=== PATIENT | female | born 1930 | race Caucasian/White ===

== ENCOUNTER 2016-12-16 14:00 | Emergency (ER) | payer MEDICARE, OTHER ==
[2016-12-16 14:25] VITALS: BP 201/63
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
== END 2016-12-16 15:30 | disposition home or self-care (01) ==
LOC: KA.ED 14:00
DX: S43.492A Other sprain of left shoulder joint, initial encounter (principal); E78.00 Pure hypercholesterolemia, unspecified; I10 Essential (primary) hypertension; M19.90 Unspecified osteoarthritis, unspecified site; M81.0 Age-related osteoporosis without current pathological fracture; F41.9 Anxiety disorder, unspecified; E11.9 Type 2 diabetes mellitus without complications; Z88.8 Allergy status to other drugs, medicaments and biological substances; Z79.899 Other long term (current) drug therapy; Z79.82 Long term (current) use of aspirin; Z79.4 Long term (current) use of insulin; V49.9XXA Car occupant (driver) (passenger) injured in unspecified traffic accident, initial encounter
CPT/HCPCS: 73030-LT; 99283

== ENCOUNTER 2016-12-22 16:59 | Emergency (ER) | payer MEDICARE, OTHER ==
[2016-12-22] MEDS ORDERED: Labetalol 100 MG/20 ML MDV IVPUSH ONE (17:34)
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
[2016-12-22] MEDS ORDERED: Ketorolac 30 MG/ML SDV IVPUSH ONE (18:32)
[2016-12-22 18:41] LABS: CHLORIDE,CL 100 mmol/L (98-115); SODIUM,NA 140 mmol/L (136-145)
[2016-12-22] MEDS ORDERED: LORazepam 0.5 MG Tab PO ONE (18:49)
[2016-12-22] MEDS ORDERED: HYDROmorphone 1 MG/ML Syringe IVPUSH ONE (19:46)
[2016-12-23 00:03] VITALS: BP 194/54
== END 2016-12-22 21:30 | disposition home or self-care (01) ==
LOC: KA.ED 16:59
DX: I10 Essential (primary) hypertension (principal); M19.90 Unspecified osteoarthritis, unspecified site; M81.0 Age-related osteoporosis without current pathological fracture; E78.00 Pure hypercholesterolemia, unspecified; E11.9 Type 2 diabetes mellitus without complications; Z88.8 Allergy status to other drugs, medicaments and biological substances; Z79.82 Long term (current) use of aspirin; Z79.4 Long term (current) use of insulin
CPT/HCPCS: 70450; 80048; 84484; 85025; 93005; 96374; 96375; 99284; A9270; J1170; J1885

== ENCOUNTER 2016-12-23 15:21 | Inpatient (IN) | payer MEDICARE, OTHER ==
[2016-12-23] MEDS ORDERED: Labetalol 100 MG/20 ML MDV IVPUSH ONE (15:36)
[2016-12-23] MEDS ORDERED: HYDROmorphone 1 MG/ML Syringe IVPUSH ONE ×2 (15:38→16:42)
[2016-12-23] MEDS ORDERED: Ondansetron 4 MG/2 ML SDV IVPUSH ONE (15:39)
--- NOTE | 2016-12-23 15:39 | EDM.PDOC ---
ED HPI GENERAL MEDICAL PROBLEM - General Stated Complaint: HEADACHE Time Seen by Provider: 12/23/16 15:23 Source of Information: Reports: Patient, Family (dtr-n-law) History Limitations: Reports: No Limitations - History of Present Illness INITIAL COMMENTS - FREE TEXT/NARRATIVE: Patient comes back to ER with a return of her headache and likely high blood pressure again. She was in ER here about 20 hours ago (last evening) with similar symptoms but headache today is not quite as bad. Head CT was negative last night. She had Labetalol, and low doses of Ativan and Dilaudid and improved significantly before leaving the ER last evening. She slept very well and had no headache this morning. She ate good at breakfast and dinner/lunch. Her headache started not long after lunch. Her blood pressure around noon was 160's over 90's on her home sandy which may not be extremely accurate she says. Before coming in to ER she rechecked the pressure and it wouldn't read it stating "error". Today she is nauseated but no vomiting or diarrhea. - Related Data Allergies Allergy/AdvReac Type Severity Reaction Status Date / Time atenolol [From Tenormin] Allergy Dizziness Verified 12/22/16 17:12 cefdinir Allergy Diarrhea Verified 12/22/16 17:12 heart patch Allergy Other Uncoded 12/22/16 17:13 Home Meds: Home Meds Ascorbic Acid [Vitamin C] 500 mg PO BEDTIME 10/21/14 [History] Aspirin [Halfprin] 81 mg PO DAILY@1800 10/21/14 [History] Benazepril [Lotensin] 40 mg PO BEDTIME 10/21/14 [History] Docusate Sodium [Colace] 100 mg PO BEDTIME 10/21/14 [History] Escitalopram Oxalate [Lexapro] 10 mg PO DAILY 10/21/14 [History] Furosemide [Lasix] 20 mg PO DAILY 10/21/14 [History] Insulin Aspart [NovoLOG] 10 units SUBCUT 1200,1800 10/21/14 [History] Insulin Glarg,Human.Rec.Analog [LantUS Solostar] 75 units SUBCUT DAILY 10/21/14 [History] Multivitamins [Tab-A-Lary] 1 each PO DAILY 10/21/14 [History] traMADol [Ultram] 50 mg PO Q6H PRN 10/21/14 [History] Calcium Carbonate/Vitamin D3 [Calcium 600-Vit D3 800 Tablet] 1 tab PO BIDMEALS 06/01/16 [History] Acetaminophen [Tylenol Arthritis Pain] 650 mg PO Q8H #90 tab.er 06/08/16 [Rx] Calcium Citrate/Vitamin D3 [Calcium Citrate + D] 2 tab PO BIDMEALS #180 tablet 06/08/16 [Rx] Alendronate [Fosamax] 70 mg PO Q7D@0600 12/16/16 [History] Past Medical History HEENT History: Reports: Cataract Cardiovascular History: Reports: High Cholesterol, Hypertension Respiratory History: Reports: Sleep Apnea Gastrointestinal History: Reports: Chronic Constipation Other Gastrointestinal History: constipation Genitourinary History: Reports: Urinary Incontinence Other Genitourinary History: "not much control anymore" 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: Musculoskeletal History: Reports: Arthritis, Back Pain, Chronic, Osteoporosis Psychiatric History: Reports: Anxiety Endocrine/Metabolic History: Reports: Diabetes, Type II Immunologic History: Reports: None - Infectious Disease History Infectious Disease History: Reports: Chicken Pox, Measles, Mumps, Pertussis ( Whooping Cough) - Past Surgical History HEENT Surgical History: Reports: Cataract Surgery Social & Family History - Family History HEENT: Reports: None Cardiac: Reports: Other (See Below) Respiratory: Reports: None GI: Reports: None : Reports: None OBGYN: Reports: None Musculoskeletal: Reports: None Neurological: Reports: None Psychiatric: Reports: None Endocrine/Metabolic: Reports: None Hematologic: Reports: None Immunologic: Reports: None Dermatologic: Reports: None Oncologic: Reports: None - Tobacco Use Smoking Status *Q: Unknown Ever Smoked Second Hand Smoke Exposure: No - Caffeine Use Caffeine Use: Reports: Coffee - Recreational Drug Use Recreational Drug Use: No ED ROS GENERAL - Review of Systems Review Of Systems: See Below Constitutional: Reports: Weakness (general; weaker than yesterday), Diaphoresis (slight when the headache started; probably also when the BP went up). Denies: Fever, Chills, Decreased Appetite HEENT: Denies: Throat Pain, Vision Change Respiratory: Denies: Shortness of Breath, Cough Cardiovascular: Denies: Chest Pain, Lightheadedness, Syncope Endocrine: Denies: Low Glucose GI/Abdominal: Reports: Nausea. Denies: Abdominal Pain, Vomiting : Denies: Dysuria, Flank Pain Musculoskeletal: Denies: Neck Pain, Shoulder Pain (no new pain), Arm Pain, Back Pain Skin: Denies: Cyanosis, Jaundice, Mottled, Pallor, Diaphoresis Neurological: Reports: Headache. Denies: Confusion, Dizziness, Numbness, Seizure, Syncope, Trouble Speaking Psychiatric: Denies: Agitation, Anxiety, Confusion - Physical Exam Exam: See Below Exam Limited By: No Limitations General Appearance: Alert, WD/WN, No Apparent Distress Eye Exam: Bilateral Eye: EOMI, Normal Inspection, PERRL Ears: Normal External Exam, Hearing Grossly Normal Nose: Normal Inspection, No Blood Throat/Mouth: Normal Lips, Normal Voice, No Airway Compromise Head Exam: Atraumatic, Normocephalic Neck: Normal Inspection, Supple, Non-Tender, Full Range of Motion. No: Carotid Bruit Respiratory/Chest: No Respiratory Distress, Lungs Clear, Normal Breath Sounds, No Accessory Muscle Use Cardiovascular: Normal Peripheral Pulses, Regular Rate, Rhythm, No Edema, No Gallop, No JVD, No Murmur GI/Abdominal: Normal Bowel Sounds, Soft, Non-Tender, No Organomegaly, No Distention Neuro Exam (Abbreviated): Alert, Oriented, Normal Cognition, No Motor/Sensory Deficits Back Exam: No: CVA Tenderness (L), CVA Tenderness (R) Extremities: Normal Inspection, Normal Range of Motion, Non-Tender, No Pedal Edema Psychiatric: Normal Affect, Normal Mood Skin Exam: Warm, Dry, Intact, Normal Color, No Rash Course - Re-Assessments/Exams Free Text/Narrative Re-Assessment/Exam: 12/23/16 16:35 WBC is 13.3, lactate 1.9, EKG normal, UA reveals definite UTI. Ordered urine culture and starting IV Cipro. Discussed findings with patient and her dtr-n- law. Also discussed with Ilenaa Rojas NP who will accept for admission and order routine meds. Patient stable with improving blood pressure, now at 163/55. Headache only down to 7 an hour after 0.5 mg Dilaudid so will do another small dose of Dilaudid prior to taking to the floor. Departure - Departure Time of Disposition: 16:43 Disposition: Refer to Observation Condition: Good Clinical Impression: UTI (urinary tract infection), bacterial, Headache above the eye region Hypertension Qualifiers: Hypertension type: unspecified Qualified Code(s): I10 - Essential (primary) hypertension - Discharge Information Referrals: Medardo Edwards FRAMING MILL OPERATOR [Primary Care Provider] -
[2016-12-23] MEDS ORDERED: Ciprofloxacin in D5W 400 MG in Premix Bag 1 BAG IV ONE ×2 (16:18)
[2016-12-23 16:19] LABS: CHLORIDE,CL 100 mmol/L (98-115); SODIUM,NA 139 mmol/L (136-145)
[2016-12-23] MEDS ORDERED: Acetaminophen 650 MG Tab.ER PO SCH (18:15)
--- NOTE | 2016-12-23 18:23 | PCM.HP ---
H&P History of Present Illness - General Date of Service: 12/23/16 Source of Information: Patient, Old Records, Provider History Limitations: Reports: No Limitations - History of Present Illness Initial Comments - Free Text/Narative: This is an 86 year old female who presented to the emergency room this afternoon with a headache and elevated blood pressure. The patient had been in the emergency room for a similar complaint last night, but was sent home as symptoms resolved. She states she woke up this morning without a headache. She was able to eat breakfast and lunch. Shortly after lunch, she noticed the headache returned. She checked her blood pressure at home and it was elevated to 160s. Associated nausea. Head CT was obtained last evening and was reported as negative. Patient had further workup in the ER this afternoon including a WBC 13.3, urinalysis showing moderate bacteria, normal lactic acid level, and normal troponin level. EKG was reported as normal sinus rhythm. She was given dilaudid 0.5 mg IV x 2 with little relief in headache. She was given labetalol 20 mg IV x 1 with some improvement in blood pressure. ER discharge blood pressure of 163/60. The patient's past medical history is significant for hypertension, carotid artery disease, type 2 diabetes mellitus, hypercholesterolemia, depression, and osteoarthritis. The patient resides at home with her spouse, however her spouse is currently hospitalized. She states that she hasn't been drinking as much water as she normally does. She typically drinks 6 cups daily always. Headache Pain Score (Numeric/FACES): 9 - Related Data Allergies/Adverse Reactions: Allergies Allergy/AdvReac Type Severity Reaction Status Date / Time atenolol [From Tenormin] Allergy Dizziness Verified 12/23/16 17:55 cefdinir Allergy Diarrhea Verified 12/23/16 17:55 heart patch Allergy Other Uncoded 12/23/16 17:55 Home Medications: Home Meds Ascorbic Acid [Vitamin C] 500 mg PO BEDTIME 10/21/14 [History] Aspirin [Halfprin] 81 mg PO DAILY@1800 10/21/14 [History] Benazepril [Lotensin] 40 mg PO BEDTIME 10/21/14 [History] Docusate Sodium [Colace] 100 mg PO BEDTIME 10/21/14 [History] Escitalopram Oxalate [Lexapro] 10 mg PO DAILY 10/21/14 [History] Furosemide [Lasix] 20 mg PO DAILY 10/21/14 [History] Insulin Aspart [NovoLOG] 10 units SUBCUT 1200,1800 10/21/14 [History] Insulin Glarg,Human.Rec.Analog [LantUS Solostar] 75 units SUBCUT DAILY 10/21/14 [History] Multivitamins [Tab-A-Lary] 1 each PO DAILY 10/21/14 [History] traMADol [Ultram] 50 mg PO Q6H PRN 10/21/14 [History] Calcium Carbonate/Vitamin D3 [Calcium 600-Vit D3 800 Tablet] 1 tab PO BIDMEALS 06/01/16 [History] Acetaminophen [Tylenol Arthritis Pain] 650 mg PO Q8H #90 tab.er 06/08/16 [Rx] Calcium Citrate/Vitamin D3 [Calcium Citrate + D] 2 tab PO BIDMEALS #180 tablet 06/08/16 [Rx] Alendronate [Fosamax] 70 mg PO Q7D@0600 12/16/16 [History] Past Medical History HEENT History: Reports: Cataract Cardiovascular History: Reports: High Cholesterol, Hypertension Respiratory History: Reports: Sleep Apnea Gastrointestinal History: Reports: Chronic Constipation Other Gastrointestinal History: constipation Genitourinary History: Reports: Urinary Incontinence Other Genitourinary History: "not much control anymore" [employer] History: Reports: Musculoskeletal History: Reports: Arthritis, Back Pain, Chronic, Osteoporosis Other Musculoskeletal History: chronic knee pain Neurological History: Reports: Other (See Below) Other Neuro History: mild tremors Psychiatric History: Reports: Anxiety Endocrine/Metabolic History: Reports: Diabetes, Type II Immunologic History: Reports: None - Infectious Disease History Infectious Disease History: Reports: Chicken Pox, Measles, Mumps, Pertussis ( Whooping Cough) - Past Surgical History HEENT Surgical History: Reports: Cataract Surgery Social & Family History - Family History Family Medical History: Noncontributory HEENT: Reports: None Cardiac: Reports: Other (See Below) Respiratory: Reports: None GI: Reports: None : Reports: None OBGYN: Reports: None Musculoskeletal: Reports: None Neurological: Reports: None Psychiatric: Reports: None Endocrine/Metabolic: Reports: None Hematologic: Reports: None Immunologic: Reports: None Dermatologic: Reports: None Oncologic: Reports: None - Tobacco Use Smoking Status *Q: Unknown Ever Smoked Second Hand Smoke Exposure: No - Caffeine Use Caffeine Use: Reports: Coffee - Recreational Drug Use Recreational Drug Use: No H&P Review of Systems - Review of Systems: Review Of Systems: See Below General: Denies: Fever, Chills HEENT: Reports: Headaches (top of head), Other (No tinnitus). Denies: Ear Pain , Sore Throat, Visual Changes Pulmonary: Denies: Shortness of Breath, Cough Cardiovascular: Denies: Chest Pain, Palpitations, Edema Gastrointestinal: Denies: Abdominal Pain, Constipation, Diarrhea, Decreased Appetite, Nausea, Vomiting Genitourinary: Denies: Dysuria, Frequency, Urgency Neurological: Reports: Headache Exam - Exam Exam: See Below - Vital Signs Vital Signs: Last Vital Signs Temp 98.8 F 12/23/16 17:04 Pulse 72 12/23/16 17:04 Resp 18 12/23/16 17:04 BP 166/47 H 12/23/16 17:04 Pulse Ox 94 L 12/23/16 17:04 Weight: 180 lb - Exam Quality Assessment: DVT Prophylaxis (score of 4-placed on lovenox). No: Supplemental Oxygen, Urinary Catheter General: Alert, Oriented, Cooperative, Mild Distress HEENT: Conjunctiva Clear, Hearing Intact, Posterior Pharynx Clear, Pupils Equal , Pupils Reactive, TMs Clear, Glasses. No: Mucosa Moist & [place] ([place] and dry) Neck: Supple, Trachea Midline Lungs: Clear to Auscultation, Normal Respiratory Effort Cardiovascular: Regular Rate, Regular Rhythm, Normal S1, Normal S2 GI/Abdominal Exam: Normal Bowel Sounds, Soft, Non-Tender, No Distention Extremities: Other (Trace edema to BLE) Skin: Warm, Dry Neuro Extensive - Mental Status: Alert, Oriented x3, Normal Mood/Affect Psychiatric: Alert, Normal Affect, Normal Mood. No: Anxious - Patient Data Result Diagrams: 12/23/16 15:40 12/23/16 15:40 EKG INTERPRETATION EKG Date: 12/23/16 Rhythm: NSR Rate (Beats/Min): 72 [place]: Normal P-Wave: Present QRS: Normal ST-T: Normal QT: Normal *Q Meaningful Use (ADM) - VTE *Q VTE Criteria *Q: - Stroke *Q Stroke Criteria *Q: - AMI *Q AMI Criteria *Q: Problem List Initiated/Reviewed/Updated: Yes Orders Last 24hrs: Active Orders 24 hr Category Date Time Status Accu Check [Blood Glucose Check, Bedside] [RC] Care 12/23/16 18:09 Ordered QIDACANDBED ADA Diabetic [[place] [employer] Diet] [DIET Diet 12/23/16 Dinner Ordered ] BMP [BASIC METABOLIC PANEL,BMP] [CHEM] AM Lab 12/24/16 05:11 Ordered CBC WITH AUTO DIFF [HEME] AM Lab 12/24/16 05:11 Ordered Acetaminophen [Tylenol Arthritis Pain] Med 12/23/16 18:15 Ordered 650 mg PO Q8H Ascorbic Acid [Vitamin C] Med 12/23/16 21:00 Ordered 500 mg PO BEDTIME Aspirin [Halfprin] Med 12/24/16 18:00 Ordered 81 mg PO DAILY@1800 Benazepril [Lotensin] Med 12/23/16 21:00 Ordered 40 mg PO BEDTIME Calcium Carbonate/Vitamin D3 [Calcium 600-Vit D3 800 Med 12/24/16 08:00 Ordered Tablet] 1 tab PO BIDMEALS Ciprofloxacin in D5W [Cipro in D5W 400 MG/200 ML] 400 Med 12/24/16 07:00 Ordered mg Premix Bag 1 bag IV Q12H Docusate Sodium [Colace] Med 12/23/16 21:00 Ordered 100 mg PO BEDTIME Escitalopram Oxalate [Lexapro] Med 12/24/16 09:00 Ordered 10 mg PO DAILY Insulin Aspart [NovoLOG] Med 12/24/16 12:00 Ordered 10 unit SUBCUT 1200,1800 Insulin Glarg,Human.Rec.Analog Med 12/24/16 09:00 Ordered 75 units SUBCUT DAILY Multivitamins [Tab-A-Lary] Med 12/24/16 09:00 Ordered 1 each PO DAILY Sodium Chloride 0.9% @ 75 MLS/HR(1000ml) Med 12/23/16 18:15 Ordered Sodium Chloride 0.9% [Normal Saline] 1,000 ml IV ASDIRECTED amLODIPine [Norvasc] Med 12/23/16 18:30 Ordered 5 mg PO DAILY traMADol [Ultram] Med 12/23/16 18:14 Ordered 50 mg PO Q6H PRN Code Status [Resuscitation Status] Routine Resus Stat 12/23/16 18:08 Ordered Medication Orders Acetaminophen (Tylenol Arthritis Pain) 650 mg PO Q8H [facility] Amlodipine Besylate (Norvasc) 5 mg PO DAILY [facility] Ascorbic Acid (Vitamin C) 500 mg PO BEDTIME [facility] Aspirin (Halfprin) 81 mg PO DAILY@1800 [facility] Docusate Sodium (Colace) 100 mg PO BEDTIME [facility] Sodium Chloride (Normal Saline) 1,000 mls @ 75 mls/hr IV ASDIRECTED [facility] Ciprofloxacin/Dextrose 400 mg/ (Premix) 200 mls @ 200 mls/hr IV Q12H [facility] Insulin Aspart (Novolog) 10 unit SUBCUT 1200,1800 [facility] Non-Formulary Medication (Benazepril [Lotensin]) 40 mg PO BEDTIME [facility] Non-Formulary Medication (Calcium Carbonate/Vitamin D3 [Calcium 600-Vit D3 800 Tablet]) 1 tab PO BIDMEALS [facility] Non-Formulary Medication (Escitalopram Oxalate [Lexapro]) 10 mg PO DAILY [facility] Non-Formulary Medication (Insulin Glarg,Human.Rec.Analog) 75 units SUBCUT DAILY [facility] Non-Formulary Medication (Multivitamins [Tab-A-Lary]) 1 each PO DAILY [facility] Tramadol HCl (Ultram) 50 mg PO Q6H PRN PRN Reason: Pain Assessment/Plan Comment:: Primary assessment/plan: Asymptomatic UTI. UA positive for moderate bacteria and trace blood. Urine culture pending. WBC 13.3 with left shift. Cipro 400 mg IV q12h. CrCl 51.53. Lactic acid 1.9; no blood cultures taken. Repeat CBC in AM. Acute headache, question relation to elevated blood pressure versus dehydration. Continue scheduled tylenol. May use tramadol PRN. Hypertension, uncontrolled. Continue benazepril 40 mg at bedtime. Troponin 0.05. EKG normal sinus rhythm. Blood pressure improved to 140s systolic. Dehydration, mild. BUN/creatinine ratio 23.8:1. NS at 75 mL/hr. Monitor I & O. Push oral fluids. BMP in AM. Secondary assessment/plan: Type 2 diabetes mellitus. Accuchecks QID. Continue levemir 75 units daily and novolog 10 units with lunch and supper. History of hypercholesterolemia. Not on medication. Depression. Continue lexapro. Osteoarthritis. Continue tylenol and tramadol. Bilateral carotid artery stenosis. DVT prophylaxis. Lovenox. Overall plan: Continue to monitor blood pressure and headache. May need to add second agent to her current regimen. Repeat labs in the AM.
[2016-12-23] MEDS ORDERED: amLODIPine 5 MG Tab PO SCH (18:30)
[2016-12-23] MEDS: Sodium Chloride 0.9% 1,000 ML IV SCH (18:30)
[2016-12-23] MEDS: Acetaminophen 650 MG Tab.ER PO SCH (18:42)
[2016-12-23] MEDS: Enoxaparin 40 MG/0.4 ML Syringe SUBCUT SCH (18:44)
[2016-12-23] MEDS: Ascorbic Acid 500 MG Tab PO SCH (20:58)
[2016-12-23] MEDS: Docusate Sodium 100 MG Cap PO SCH (20:58)
[2016-12-23] MEDS: Benazepril 10 MG Tab PO SCH (20:59)
[2016-12-24] MEDS: Acetaminophen 650 MG Tab.ER PO SCH ×4 (02:04→21:26)
[2016-12-24] MEDS: Ciprofloxacin in D5W 400 MG in Premix Bag 1 BAG IV SCH ×4 (05:26→18:37)
[2016-12-24 07:44] LABS: CHLORIDE,CL 102 mmol/L (98-115); SODIUM,NA 138 mmol/L (136-145)
[2016-12-24] MEDS ORDERED: Magnesium Hydroxide 400 MG/5 ML Susp 30 ML Cup PO PRN (07:44)
[2016-12-24] MEDS: Calcium Citrate/Vitamin D3 315 MG-250 Unit Tab PO SCH ×2 (07:53→18:37)
[2016-12-24] MEDS: Escitalopram 10 MG Tab PO SCH (08:00)
[2016-12-24] MEDS: Insulin Detemir 100 Units/ML 3 ML Pen SUBCUT SCH (08:00)
[2016-12-24] MEDS: amLODIPine 5 MG Tab PO SCH ×2 (09:45→09:47)
[2016-12-24] MEDS: Biotin/Folic Acid/Vitamin C/Vitamin B Complex Tab PO SCH (09:51)
[2016-12-24] MEDS: Sodium Chloride 0.9% 1,000 ML IV SCH (10:02)
--- NOTE | 2016-12-24 10:21 | PCM.PN ---
- General Info Date of Service: 12/24/16 Functional Status: Reports: Tolerating Diet, Urinating. Denies: Pain Controlled - Review of Systems HEENT: Reports: Glasses, Headaches (top of head more to the posterior aspect). Denies: Eye Pain, Visual Changes Pulmonary: Denies: Shortness of Breath Cardiovascular: Denies: Chest Pain, Palpitations, Edema Gastrointestinal: Reports: Nausea. Denies: Abdominal Pain, Constipation, Vomiting Genitourinary: Denies: Dysuria, Frequency Neurological: Reports: Headache - Patient Data Vitals - Most Recent: Last Vital Signs Temp 98.1 F 12/24/16 06:52 Pulse 63 12/24/16 08:19 Resp 20 12/24/16 06:52 BP 172/78 H 12/24/16 09:47 Pulse Ox 92 L 12/24/16 06:52 Weight - Most Recent: 180 lb I&O - Last 24 Hours: Intake & Output 12/23/16 12/24/16 12/24/16 22:59 06:59 14:59 Intake Total 595 1001 Output Total 200 400 Balance 395 601 Lab Results Last 24 Hours: Laboratory Results - last 24 hr 12/23/16 12/24/16 12/24/16 Range/Units 21:08 06:50 07:05 WBC 9.9 (5.0-10.0) 10^3/uL RBC 4.55 (3.80-5.50) 10^6/uL Hgb 13.5 (12.0-16.0) g/dL Hct 40.2 (37.0-47.0) % MCV 88.3 (82.0-92.0) fL MCH 29.8 (27.0-31.0) pg MCHC 33.7 (32.0-36.0) g/dL RDW 13.1 (11.5-14.5) % Plt Count 383 H (150-300) 10^3/uL MPV 7.8 (7.4-10.4) fL Neut % (Auto) 63.1 (50.0-70.0) % Lymph % (Auto) 22.3 (20.0-40.0) % [place] % (Auto) 10.6 H (2.0-8.0) % Eos % (Auto) 2.8 (1.0-3.0) % Baso % (Auto) 1.2 H (0.0-1.0) % Neut # (Auto) 6.3 (2.5-7.0) 10^3/uL Lymph # (Auto) 2.2 (1.0-4.0) 10^3/uL [place] # (Auto) 1.0 H (0.1-0.8) 10^3/uL Eos # (Auto) 0.3 (0.1-0.3) 10^3/uL Baso # (Auto) 0.1 (0.0-0.1) 10^3/uL Sodium (136-145) mmol/L Potassium (3.3-5.3) mmol/L Chloride (98-115) mmol/L Carbon Dioxide (21.0-32.0) mmol/L BUN (6-25) mg/dL Creatinine (0.51-1.17) mg/dL Est Cr Clr Drug Dosing Estimated GFR (MDRD) mL/min Glucose (70-110) mg/dL POC Glucose 160 H 148 H (74-106) mg/dl Calcium (8.7-10.3) mg/dL 12/24/16 Range/Units 07:05 WBC (5.0-10.0) 10^3/uL RBC (3.80-5.50) 10^6/uL Hgb (12.0-16.0) g/dL Hct (37.0-47.0) % MCV (82.0-92.0) fL MCH (27.0-31.0) pg MCHC (32.0-36.0) g/dL RDW (11.5-14.5) % Plt Count (150-300) 10^3/uL MPV (7.4-10.4) fL Neut % (Auto) (50.0-70.0) % Lymph % (Auto) (20.0-40.0) % [place] % (Auto) (2.0-8.0) % Eos % (Auto) (1.0-3.0) % Baso % (Auto) (0.0-1.0) % Neut # (Auto) (2.5-7.0) 10^3/uL Lymph # (Auto) (1.0-4.0) 10^3/uL [place] # (Auto) (0.1-0.8) 10^3/uL Eos # (Auto) (0.1-0.3) 10^3/uL Baso # (Auto) (0.0-0.1) 10^3/uL Sodium 138 (136-145) mmol/L Potassium 4.1 (3.3-5.3) mmol/L Chloride 102 (98-115) mmol/L Carbon Dioxide 29.5 (21.0-32.0) mmol/L BUN 23 (6-25) mg/dL Creatinine 0.89 (0.51-1.17) mg/dL Est Cr Clr Drug Dosing TNP Estimated GFR (MDRD) > 60 mL/min Glucose 151 H (70-110) mg/dL POC Glucose (74-106) mg/dl Calcium 8.6 L (8.7-10.3) mg/dL Med Orders - Current: Current Medications Acetaminophen (Tylenol Arthritis Pain) 650 mg PO Q8H [facility] Amlodipine Besylate (Norvasc) 5 mg PO DAILY [facility] Last Admin: 12/24/16 09:47 Dose: Not Given Ascorbic Acid (Vitamin C) 500 mg PO BEDTIME [facility] Last Admin: 12/23/16 20:58 Dose: 500 mg Aspirin (Halfprin) 81 mg PO DAILY@1800 [facility] Benazepril HCl (Lotensin) 40 mg PO BEDTIME [facility] Last Admin: 12/23/16 20:59 Dose: 40 mg Calcium Citrate (Calcium Citrate + D) 1 tab PO BIDMEALS [facility] Last Admin: 12/24/16 07:53 Dose: 1 tab Docusate Sodium (Colace) 100 mg PO BEDTIME [facility] Last Admin: 12/23/16 20:58 Dose: 100 mg Enoxaparin Sodium (Lovenox) 40 mg SUBCUT DAILY@1800 [facility] Last Admin: 12/23/16 18:44 Dose: 40 mg Escitalopram Oxalate (Lexapro) 10 mg PO DAILY [facility] Last Admin: 12/24/16 08:00 Dose: 10 mg Sodium Chloride (Normal Saline) 1,000 mls @ 75 mls/hr IV ASDIRECTED [facility] Last Admin: 12/24/16 10:02 Dose: 75 mls/hr Ciprofloxacin/Dextrose 400 mg/ (Premix) 200 mls @ 200 mls/hr IV Q12H [facility] Last Admin: 12/24/16 05:26 Dose: 200 mls/hr Insulin Aspart (Novolog) 10 unit SUBCUT 1200,1800 [facility] Insulin Detemir (Levemir) 75 unit SUBCUT DAILY [facility] Last Admin: 12/24/16 08:00 Dose: 75 mg Magnesium Hydroxide (Milk Of Magnesia) 30 ml PO DAILY PRN PRN Reason: Constipation Last Admin: 12/24/16 07:52 Dose: 30 ml Tramadol HCl (Ultram) 50 mg PO Q6H PRN PRN Reason: Pain Vitamin B Complex/Vit C/Folic Acid (Nephrocaps) 1 tab PO DAILY [facility] Last Admin: 12/24/16 09:51 Dose: Not Given Discontinued Medications Acetaminophen (Tylenol Arthritis Pain) 650 mg PO Q8H [facility] Last Admin: 12/23/16 18:46 Dose: Not Given Acetaminophen (Tylenol Arthritis Pain) 650 mg PO Q8H [facility] Last Admin: 12/24/16 02:04 Dose: 650 mg Amlodipine Besylate (Norvasc) 5 mg PO DAILY [facility] Last Admin: 12/23/16 18:35 Dose: Not Given Hydromorphone HCl (Dilaudid) 0.5 mg IVPUSH ONETIME ONE Stop: 12/23/16 15:39 Last Admin: 12/23/16 16:06 Dose: 0.5 mg Hydromorphone HCl (Dilaudid) 0.5 mg IVPUSH ONETIME ONE Stop: 12/23/16 16:43 Last Admin: 12/23/16 16:45 Dose: 0.5 mg Ciprofloxacin/Dextrose 400 mg/ (Premix) 200 mls @ 200 mls/hr IV ONETIME ONE Stop: 12/23/16 17:17 Last Admin: 12/23/16 16:41 Dose: 200 mls/hr Labetalol HCl (Normodyne) 20 mg IVPUSH ONETIME ONE PRN Reason: Protocol Stop: 12/23/16 15:37 Last Admin: 12/23/16 16:00 Dose: 20 mg Ondansetron HCl (Zofran) 4 mg IVPUSH ONETIME ONE Stop: 12/23/16 15:40 Last Admin: 12/23/16 15:59 Dose: 4 mg - Exam Quality Assessment: DVT Prophylaxis (Lovenox). No: Supplemental Oxygen, Urine Catheter General: Alert, Oriented, Cooperative, No Acute Distress Lungs: Clear to Auscultation, Normal Respiratory Effort Cardiovascular: Regular Rate, Regular Rhythm, No Murmurs GI/Abdominal Exam: Normal Bowel Sounds, Soft, Non-Tender, No Distention Extremities: Other (trace edema to BLE) Skin: Warm, Dry Neurological: Normal Speech Psy/Mental Status: Alert, Normal Affect, Normal Mood. No: Anxious - Problem List Review Problem List Initiated/Reviewed/Updated: Yes - My Orders Last 24 Hours: My Active Orders 12/23/16 18:08 Code Status [Resuscitation Status] Routine 12/23/16 18:09 Accu Check [Blood Glucose Check, Bedside] [RC] QIDACANDBED 12/23/16 18:14 traMADol [Ultram] 50 mg PO Q6H PRN 12/23/16 18:15 Sodium Chloride 0.9% [Normal Saline] 1,000 ml IV ASDIRECTED 12/23/16 18:30 Enoxaparin [Lovenox] 40 mg SUBCUT DAILY@1800 12/23/16 18:31 Intake and Output [RC] 1400,2200,0600 12/23/16 21:00 Ascorbic Acid [Vitamin C] 500 mg PO BEDTIME Benazepril [Lotensin] 40 mg PO BEDTIME Docusate Sodium [Colace] 100 mg PO BEDTIME 12/23/16 Dinner ADA Diabetic [[employer] [employer] Diet] [DIET] 12/24/16 06:00 Ciprofloxacin in D5W [Cipro in D5W 400 MG/200 ML] 400 mg Premix Bag 1 bag IV Q12H 12/24/16 07:44 Magnesium Hydroxide [Milk of Magnesia] 30 ml PO DAILY PRN 12/24/16 08:00 Calcium Citrate/Vitamin D3 [Calcium Citrate + D] 1 tab PO BIDMEALS 12/24/16 08:30 amLODIPine [Norvasc] 5 mg PO DAILY 12/24/16 09:00 Biotin/FA/Vit C/Vit B Complex [Nephrocaps] 1 tab PO DAILY Escitalopram [Lexapro] 10 mg PO DAILY Insulin Detemir [Levemir] 75 unit SUBCUT DAILY 12/24/16 12:00 Insulin Aspart [NovoLOG] 10 unit SUBCUT 1200,1800 12/24/16 14:00 Acetaminophen [Tylenol Arthritis Pain] 650 mg PO Q8H 12/24/16 18:00 Aspirin [Halfprin] 81 mg PO DAILY@1800 - Plan Plan:: Primary assessment/plan: Asymptomatic UTI. Urine culture revealing no growth after 1 day. WBC improved to 9.9 without a left shift. Continue Cipro 400 mg IV q12h until final urine culture report is back. Acute headache, most likely related to uncontrolled hypertension. Continue scheduled tylenol. May use tramadol PRN. Hypertension, uncontrolled. Add norvasc 5 mg po daily. Continue benazepril 40 mg at bedtime. Dehydration, mild. BUN 23, creatinine 0.89, GFR >60; all improved. BUN/ creatinine ratio 25.8:1. Decrease IVF of NS to 50 mL/hr today. Continue accurate I & O. Repeat BMP in AM. Secondary assessment/plan: Type 2 diabetes mellitus. Accuchecks QID. Fasting glucose 148 this morning. Continue levemir 75 units daily and novolog 10 units with lunch and supper and at bedtime if needed. History of hypercholesterolemia. Not on medication. Depression. Continue lexapro. Osteoarthritis. Continue tylenol and tramadol. Bilateral carotid artery stenosis. DVT prophylaxis. Lovenox. Overall plan: Adding norvasc to medications. Continue to monitor blood pressure and headache.
[2016-12-24] MEDS ORDERED: Sodium Chloride 0.9% 1,000 ML IV SCH (10:30)
[2016-12-24] MEDS: Insulin Aspart 100 Units/ML 3 ML Pen SUBCUT SCH ×2 (11:59→18:19)
[2016-12-24] MEDS: Benazepril 10 MG Tab PO SCH ×2 (12:01→21:25)
[2016-12-24] MEDS: Ondansetron 4 MG/2 ML SDV IVPUSH PRN (12:10)
[2016-12-24] MEDS ORDERED: Metoprolol Tartrate 25 MG Tab PO ONE (17:19)
[2016-12-24] MEDS: Enoxaparin 40 MG/0.4 ML Syringe SUBCUT SCH (18:37)
[2016-12-24] MEDS: Aspirin 81 MG Tab.EC PO SCH (18:37)
[2016-12-24] MEDS: Sodium Chloride 0.9% 5 ML Syringe FLUSH PRN (18:37)
[2016-12-24] MEDS ORDERED: Labetalol 100 MG/20 ML MDV IVPUSH ONE (18:55)
[2016-12-24] MEDS: traMADol 50 MG Tab PO PRN (19:00)
[2016-12-24] MEDS ORDERED: Labetalol 100 MG/20 ML MDV IVPUSH PRN (20:40)
[2016-12-24] MEDS: Docusate Sodium 100 MG Cap PO SCH (21:26)
[2016-12-24] MEDS: Ascorbic Acid 500 MG Tab PO SCH (21:26)
[2016-12-25] MEDS: Ciprofloxacin in D5W 400 MG in Premix Bag 1 BAG IV SCH ×4 (06:05→18:39)
[2016-12-25] MEDS: Acetaminophen 650 MG Tab.ER PO SCH ×3 (06:05→21:22)
[2016-12-25 07:46] LABS: CHLORIDE,CL 105 mmol/L (98-115); SODIUM,NA 142 mmol/L (136-145)
[2016-12-25] MEDS: Calcium Citrate/Vitamin D3 315 MG-250 Unit Tab PO SCH ×2 (07:59→18:23)
[2016-12-25] MEDS: Escitalopram 10 MG Tab PO SCH (07:59)
[2016-12-25] MEDS: traMADol 50 MG Tab PO PRN (08:00)
[2016-12-25] MEDS: Ondansetron 4 MG/2 ML SDV IVPUSH PRN (08:01)
[2016-12-25] MEDS: Sodium Chloride 0.9% 5 ML Syringe FLUSH PRN ×2 (08:10→18:44)
[2016-12-25] MEDS: amLODIPine 5 MG Tab PO SCH (09:13)
[2016-12-25] MEDS: Benazepril 10 MG Tab PO SCH ×2 (09:13→21:22)
[2016-12-25] MEDS: Multivitamins with Minerals/Iron/Folic Acid/Lycopene Tab PO SCH (09:16)
[2016-12-25] MEDS: Insulin Detemir 100 Units/ML 3 ML Pen SUBCUT SCH (09:19)
[2016-12-25] MEDS: Biotin/Folic Acid/Vitamin C/Vitamin B Complex Tab PO SCH (09:21)
[2016-12-25] MEDS: Insulin Aspart 100 Units/ML 3 ML Pen SUBCUT SCH ×2 (12:48→18:28)
[2016-12-25] MEDS: Aspirin 81 MG Tab.EC PO SCH (18:23)
[2016-12-25] MEDS: Enoxaparin 40 MG/0.4 ML Syringe SUBCUT SCH (18:27)
[2016-12-25] MEDS ORDERED: Clopidogrel 75 MG Tab PO ONE (20:42)
[2016-12-25] MEDS: Docusate Sodium 100 MG Cap PO SCH (21:22)
[2016-12-25] MEDS: Ascorbic Acid 500 MG Tab PO SCH (21:22)
[2016-12-26] MEDS: Acetaminophen 650 MG Tab.ER PO SCH ×3 (05:47→21:11)
[2016-12-26] MEDS: Ciprofloxacin in D5W 400 MG in Premix Bag 1 BAG IV SCH ×4 (05:49→18:38)
[2016-12-26] MEDS: Multivitamins with Minerals/Iron/Folic Acid/Lycopene Tab PO SCH (08:31)
[2016-12-26] MEDS: Insulin Detemir 100 Units/ML 3 ML Pen SUBCUT SCH (08:31)
[2016-12-26] MEDS: Calcium Citrate/Vitamin D3 315 MG-250 Unit Tab PO SCH ×2 (08:31→18:37)
[2016-12-26] MEDS: Escitalopram 10 MG Tab PO SCH (08:33)
[2016-12-26] MEDS: Benazepril 10 MG Tab PO SCH ×2 (08:34→21:11)
[2016-12-26] MEDS: amLODIPine 5 MG Tab PO SCH (08:34)
--- NOTE | 2016-12-26 11:05 | PCM.PN ---
- General Info Date of Service: 12/25/16 Functional Status: Reports: Pain Controlled, Tolerating Diet, New Symptoms ( Headache resolved, weakness today, slight visual hallucination,) - Review of Systems General: Reports: Weakness HEENT: Denies: Dysphasia Pulmonary: Reports: No Symptoms Cardiovascular: Reports: No Symptoms Gastrointestinal: Reports: Decreased Appetite, Nausea Genitourinary: Denies: Dysuria, Urgency, Hematuria, Flank Pain Musculoskeletal: Reports: Other (Left shoulder pain with recent history of fall however improving) Neurological: Reports: Weakness. Denies: Confusion, Dizziness, Numbness, Paresthesia, Trouble Speaking, Change in Speech Psychiatric: Denies: Agitation - Patient Data Vitals - Most Recent: Last Vital Signs Temp 98.1 F 12/26/16 06:56 Pulse 65 12/26/16 06:56 Resp 16 12/26/16 06:56 BP 160/80 H 12/26/16 08:34 Pulse Ox 94 L 12/26/16 06:56 Weight - Most Recent: 173 lb 4.8 oz I&O - Last 24 Hours: Intake & Output 12/25/16 12/26/16 12/26/16 22:59 06:59 14:59 Intake Total 840 200 Output Total 1050 600 Balance -210 -400 Lab Results Last 24 Hours: Laboratory Results - last 24 hr 12/25/16 12/25/16 12/26/16 Range/Units 17:43 21:18 06:35 POC Glucose 135 H 228 H 145 H (74-106) mg/dl Med Orders - Current: Current Medications Acetaminophen (Tylenol Arthritis Pain) 650 mg PO Q8H [facility] Last Admin: 12/26/16 05:47 Dose: 650 mg Amlodipine Besylate (Norvasc) 5 mg PO DAILY [facility] Last Admin: 12/26/16 08:34 Dose: 5 mg Ascorbic Acid (Vitamin C) 500 mg PO BEDTIME [facility] Last Admin: 12/25/16 21:22 Dose: 500 mg Aspirin (Halfprin) 81 mg PO DAILY@1800 [facility] Last Admin: 12/25/16 18:23 Dose: 81 mg Benazepril HCl (Lotensin) 40 mg PO BEDTIME [facility] Last Admin: 12/25/16 21:22 Dose: 40 mg Benazepril HCl (Lotensin) 20 mg PO DAILY [facility] Last Admin: 12/26/16 08:34 Dose: 20 mg Calcium Citrate (Calcium Citrate + D) 1 tab PO BIDMEALS [facility] Last Admin: 12/26/16 08:31 Dose: 1 tab Docusate Sodium (Colace) 100 mg PO BEDTIME [facility] Last Admin: 12/25/16 21:22 Dose: 100 mg Escitalopram Oxalate (Lexapro) 10 mg PO DAILY [facility] Last Admin: 12/26/16 08:33 Dose: 10 mg Ciprofloxacin/Dextrose 400 mg/ (Premix) 200 mls @ 200 mls/hr IV Q12H [facility] Last Admin: 12/26/16 05:49 Dose: 200 mls/hr Insulin Aspart (Novolog) 10 unit SUBCUT 1200,1800 [facility] Last Admin: 12/25/16 18:28 Dose: 10 units Insulin Detemir (Levemir) 75 unit SUBCUT DAILY [facility] Last Admin: 12/26/16 08:31 Dose: 75 units Labetalol HCl (Normodyne) 0 mg IVPUSH Q10M PRN; Protocol PRN Reason: Hypertension Last Admin: 12/25/16 06:27 Dose: 20 mg Magnesium Hydroxide (Milk Of Magnesia) 30 ml PO DAILY PRN PRN Reason: Constipation Last Admin: 12/24/16 07:52 Dose: 30 ml Multivitamins/Minerals (Centrum) 1 tab PO DAILY [facility] Last Admin: 12/26/16 08:31 Dose: 1 tab Ondansetron HCl (Zofran) 4 mg IVPUSH Q4H PRN PRN Reason: Nausea Last Admin: 12/25/16 08:01 Dose: 4 mg Sodium Chloride (Syrex Flush) 5 ml FLUSH Q8HR PRN PRN Reason: Keep Vein Open Last Admin: 12/25/16 18:44 Dose: 5 ml Tramadol HCl (Ultram) 50 mg PO Q6H PRN PRN Reason: Pain Last Admin: 12/25/16 08:00 Dose: 50 mg Discontinued Medications Acetaminophen (Tylenol Arthritis Pain) 650 mg PO Q8H [facility] Last Admin: 12/23/16 18:46 Dose: Not Given Acetaminophen (Tylenol Arthritis Pain) 650 mg PO Q8H [facility] Last Admin: 12/24/16 02:04 Dose: 650 mg Amlodipine Besylate (Norvasc) 5 mg PO DAILY [facility] Last Admin: 12/23/16 18:35 Dose: Not Given Clopidogrel Bisulfate (Plavix) 75 mg PO ONETIME ONE Stop: 12/25/16 20:43 Last Admin: 12/25/16 21:21 Dose: 75 mg Enoxaparin Sodium (Lovenox) 40 mg SUBCUT DAILY@1800 [facility] Last Admin: 12/25/16 18:27 Dose: 40 mg Hydromorphone HCl (Dilaudid) 0.5 mg IVPUSH ONETIME ONE Stop: 12/23/16 15:39 Last Admin: 12/23/16 16:06 Dose: 0.5 mg Hydromorphone HCl (Dilaudid) 0.5 mg IVPUSH ONETIME ONE Stop: 12/23/16 16:43 Last Admin: 12/23/16 16:45 Dose: 0.5 mg Ciprofloxacin/Dextrose 400 mg/ (Premix) 200 mls @ 200 mls/hr IV ONETIME ONE Stop: 12/23/16 17:17 Last Admin: 12/23/16 16:41 Dose: 200 mls/hr Sodium Chloride (Normal Saline) 1,000 mls @ 75 mls/hr IV ASDIRECTED [facility] Last Admin: 12/24/16 10:02 Dose: 75 mls/hr Sodium Chloride (Normal Saline) 1,000 mls @ 50 mls/hr IV ASDIRECTED [facility] Labetalol HCl (Normodyne) 20 mg IVPUSH ONETIME ONE PRN Reason: Protocol Stop: 12/23/16 15:37 Last Admin: 12/23/16 16:00 Dose: 20 mg Labetalol HCl (Normodyne) 20 mg IVPUSH ONETIME ONE PRN Reason: Protocol Stop: 12/24/16 18:56 Last Admin: 12/24/16 19:08 Dose: 20 mg Metoprolol Tartrate (Lopressor) 25 mg PO ONETIME ONE Stop: 12/24/16 17:20 Last Admin: 12/24/16 17:50 Dose: 25 mg Ondansetron HCl (Zofran) 4 mg IVPUSH ONETIME ONE Stop: 12/23/16 15:40 Last Admin: 12/23/16 15:59 Dose: 4 mg Vitamin B Complex/Vit C/Folic Acid (Nephrocaps) 1 tab PO DAILY [facility] Last Admin: 12/25/16 09:21 Dose: Not Given - Exam Quality Assessment: No: Supplemental Oxygen General: Alert, Oriented, Cooperative, No Acute Distress HEENT: Pupils Equal Neck: Supple Lungs: Clear to Auscultation, Normal Respiratory Effort Cardiovascular: Regular Rate, Regular Rhythm GI/Abdominal Exam: Normal Bowel Sounds, Soft, Non-Tender, No Organomegaly, No Distention, No Abnormal Bruit, No Mass, Pelvis Stable Back Exam: No: CVA Tenderness (L), CVA Tenderness (R) Extremities: No Pedal Edema Neurological: No New Focal Deficit, Normal Speech, Cranial Nerves Intact Psy/Mental Status: Alert, Normal Affect, Normal Mood - Problem List Review Problem List Initiated/Reviewed/Updated: Yes - My Orders Last 24 Hours: My Active Orders 12/25/16 17:35 Neuro Check [RC] QSHIFT 12/25/16 19:00 Vital Signs [RC] Q4H - Plan Plan:: Primary assessment/plan: Urinary tract infection, asymptomatic, Asymptomatic UTI. Urine culture mixed lisa, revealing no growth after 1 day. WBC improved to 9.9. Continue Cipro for today twice a day for 24 more hours. Visual hallucinations, placed on neurochecks, no deficit focal at this time Acute headache, resolved, Continue scheduled tylenol. May use tramadol PRN. Hypertension, some improvement. Norvasc. continue benazepril 40 mg at bedtime 20 mg a.m. Secondary assessment/plan: Type 2 diabetes mellitus. Accuchecks QID. Fasting glucose 148 this morning. Continue levemir 75 units daily and novolog 10 units with lunch and supper and at bedtime if needed. History of hypercholesterolemia. Not on medication. Depression. Continue lexapro. Osteoarthritis. Continue tylenol and tramadol. Bilateral carotid artery stenosis. DVT prophylaxis. Lovenox. Overall plan: Place in acute care status to monitor for any change in her neurovascular status due to visual hallucinations. Head CT normal. Assess blood pressure parameters today
--- NOTE | 2016-12-26 11:25 | PCM.PN ---
- General Info Date of Service: 12/26/16 Functional Status: Reports: Pain Controlled, Tolerating Diet, New Symptoms ( Nurses reported patient having some visual hallucinations. On-call provider last night placed on Plavix after neurological consultation, decided medical management). Denies: Ambulating - Review of Systems General: Reports: Weakness. Denies: Appetite HEENT: Denies: Dysphasia Pulmonary: Reports: No Symptoms Cardiovascular: Reports: No Symptoms Gastrointestinal: Denies: Nausea, Vomiting Genitourinary: Denies: Dysuria, Flank Pain Musculoskeletal: Reports: Other (Left shoulder pain much improved) Skin: Reports: No Symptoms Neurological: Reports: Difficulty Walking, Weakness, Gait Disturbance. Denies: Confusion, Headache, Numbness, Paresthesia, Syncope, Tingling, Trouble Speaking , Change in Speech Psychiatric: Denies: Confusion - Patient Data Vitals - Most Recent: Last Vital Signs Temp 98.1 F 12/26/16 06:56 Pulse 65 12/26/16 06:56 Resp 16 12/26/16 06:56 BP 160/80 H 12/26/16 08:34 Pulse Ox 94 L 12/26/16 06:56 Weight - Most Recent: 173 lb 4.8 oz I&O - Last 24 Hours: Intake & Output 12/25/16 12/26/16 12/26/16 22:59 06:59 14:59 Intake Total 840 200 Output Total 1050 600 Balance -210 -400 Lab Results Last 24 Hours: Laboratory Results - last 24 hr 12/25/16 12/25/16 12/26/16 Range/Units 17:43 21:18 06:35 POC Glucose 135 H 228 H 145 H (74-106) mg/dl Med Orders - Current: Current Medications Acetaminophen (Tylenol Arthritis Pain) 650 mg PO Q8H [facility] Last Admin: 12/26/16 05:47 Dose: 650 mg Amlodipine Besylate (Norvasc) 5 mg PO DAILY [facility] Last Admin: 12/26/16 08:34 Dose: 5 mg Ascorbic Acid (Vitamin C) 500 mg PO BEDTIME [facility] Last Admin: 12/25/16 21:22 Dose: 500 mg Aspirin (Halfprin) 81 mg PO DAILY@1800 [facility] Last Admin: 12/25/16 18:23 Dose: 81 mg Benazepril HCl (Lotensin) 40 mg PO BEDTIME [facility] Last Admin: 12/25/16 21:22 Dose: 40 mg Benazepril HCl (Lotensin) 20 mg PO DAILY [facility] Last Admin: 12/26/16 08:34 Dose: 20 mg Calcium Citrate (Calcium Citrate + D) 1 tab PO BIDMEALS [facility] Last Admin: 12/26/16 08:31 Dose: 1 tab Docusate Sodium (Colace) 100 mg PO BEDTIME [facility] Last Admin: 12/25/16 21:22 Dose: 100 mg Escitalopram Oxalate (Lexapro) 10 mg PO DAILY [facility] Last Admin: 12/26/16 08:33 Dose: 10 mg Ciprofloxacin/Dextrose 400 mg/ (Premix) 200 mls @ 200 mls/hr IV Q12H [facility] Last Admin: 12/26/16 05:49 Dose: 200 mls/hr Insulin Aspart (Novolog) 10 unit SUBCUT 1200,1800 [facility] Last Admin: 12/25/16 18:28 Dose: 10 units Insulin Detemir (Levemir) 75 unit SUBCUT DAILY [facility] Last Admin: 12/26/16 08:31 Dose: 75 units Labetalol HCl (Normodyne) 0 mg IVPUSH Q10M PRN; Protocol PRN Reason: Hypertension Last Admin: 12/25/16 06:27 Dose: 20 mg Magnesium Hydroxide (Milk Of Magnesia) 30 ml PO DAILY PRN PRN Reason: Constipation Last Admin: 12/24/16 07:52 Dose: 30 ml Multivitamins/Minerals (Centrum) 1 tab PO DAILY [facility] Last Admin: 12/26/16 08:31 Dose: 1 tab Ondansetron HCl (Zofran) 4 mg IVPUSH Q4H PRN PRN Reason: Nausea Last Admin: 12/25/16 08:01 Dose: 4 mg Sodium Chloride (Syrex Flush) 5 ml FLUSH Q8HR PRN PRN Reason: Keep Vein Open Last Admin: 12/25/16 18:44 Dose: 5 ml Tramadol HCl (Ultram) 50 mg PO Q6H PRN PRN Reason: Pain Last Admin: 12/25/16 08:00 Dose: 50 mg Discontinued Medications Acetaminophen (Tylenol Arthritis Pain) 650 mg PO Q8H [facility] Last Admin: 12/23/16 18:46 Dose: Not Given Acetaminophen (Tylenol Arthritis Pain) 650 mg PO Q8H [facility] Last Admin: 12/24/16 02:04 Dose: 650 mg Amlodipine Besylate (Norvasc) 5 mg PO DAILY [facility] Last Admin: 12/23/16 18:35 Dose: Not Given Clopidogrel Bisulfate (Plavix) 75 mg PO ONETIME ONE Stop: 12/25/16 20:43 Last Admin: 12/25/16 21:21 Dose: 75 mg Enoxaparin Sodium (Lovenox) 40 mg SUBCUT DAILY@1800 [facility] Last Admin: 12/25/16 18:27 Dose: 40 mg Hydromorphone HCl (Dilaudid) 0.5 mg IVPUSH ONETIME ONE Stop: 12/23/16 15:39 Last Admin: 12/23/16 16:06 Dose: 0.5 mg Hydromorphone HCl (Dilaudid) 0.5 mg IVPUSH ONETIME ONE Stop: 12/23/16 16:43 Last Admin: 12/23/16 16:45 Dose: 0.5 mg Ciprofloxacin/Dextrose 400 mg/ (Premix) 200 mls @ 200 mls/hr IV ONETIME ONE Stop: 12/23/16 17:17 Last Admin: 12/23/16 16:41 Dose: 200 mls/hr Sodium Chloride (Normal Saline) 1,000 mls @ 75 mls/hr IV ASDIRECTED [facility] Last Admin: 12/24/16 10:02 Dose: 75 mls/hr Sodium Chloride (Normal Saline) 1,000 mls @ 50 mls/hr IV ASDIRECTED [facility] Labetalol HCl (Normodyne) 20 mg IVPUSH ONETIME ONE PRN Reason: Protocol Stop: 12/23/16 15:37 Last Admin: 12/23/16 16:00 Dose: 20 mg Labetalol HCl (Normodyne) 20 mg IVPUSH ONETIME ONE PRN Reason: Protocol Stop: 12/24/16 18:56 Last Admin: 12/24/16 19:08 Dose: 20 mg Metoprolol Tartrate (Lopressor) 25 mg PO ONETIME ONE Stop: 12/24/16 17:20 Last Admin: 12/24/16 17:50 Dose: 25 mg Ondansetron HCl (Zofran) 4 mg IVPUSH ONETIME ONE Stop: 12/23/16 15:40 Last Admin: 12/23/16 15:59 Dose: 4 mg Vitamin B Complex/Vit C/Folic Acid (Nephrocaps) 1 tab PO DAILY [facility] Last Admin: 12/25/16 09:21 Dose: Not Given - Exam Quality Assessment: No: Supplemental Oxygen General: Alert, Oriented, Cooperative HEENT: EOMI, Other (Good field of vision,) Neck: Supple Lungs: Clear to Auscultation, Normal Respiratory Effort Cardiovascular: Regular Rate, Regular Rhythm GI/Abdominal Exam: Non-Tender (Female) Exam: Deferred Back Exam: No: CVA Tenderness (L), CVA Tenderness (R) Neurological: Normal Speech, Normal Tone, Sensation Intact, Cranial Nerves Intact, Other (No dysarthria, speech normal, no facial drooping, no upper extremity weakness, normal finger tracking, no Broca aphasia) Psy/Mental Status: Alert, Normal Affect, Normal Mood - Problem List Review Problem List Initiated/Reviewed/Updated: Yes - My Orders Last 24 Hours: My Active Orders 12/25/16 17:35 Neuro Check [RC] QSHIFT 12/25/16 19:00 Vital Signs [RC] Q4H - Plan Plan:: 86 year old female admitted through the ED due to headache and hypertension with systolic blood pressures 160s at home. Head CT reported as negative. She also had slightly elevated white count with urinary tract infection and was treated with ciprofloxacin. ED workup normal lactic acid level, and normal troponin EKG NSR. Hypertension labetalol IV was given with some improvement. She spent 2 days in observation status however patient needed further ongoing monitoring since she started having some mild visible visual hallucinations and some concern of possible TIA due to some aphasia CODE STATUS, DO NOT RESUSCITATE Primary assessment/plan: Transient ischemic attack, Plavix initiated, neurology consulted, medical treatment plan includes DAPT. Review EMR for recent lipids Urinary tract infection, improving neutrophilia, Urine culture mixed lisa, prudent continue treatment with IV antibiotics since does have some evidence of hospital psychosis. Visual hallucinations, neurochecks, no deficit focal at this time, no aphasia, likely hospital psychosis, optometry consultation Acute headache, resolved, Continue scheduled tylenol. May use tramadol PRN. Hypertension, some improvement. In light of TIA will increase Norvasc to 10 mg. continue benazepril 40 mg at bedtime 20 mg a.m. Secondary assessment/plan: Type 2 diabetes mellitus. Accuchecks QID. Stable and controlled with Levemir and NovoLog History of hypercholesterolemia. Not on medication. Review EMR in light of TIA Depression. Continue lexapro. Osteoarthritis. Continue tylenol and tramadol. Bilateral carotid artery stenosis, nonoperable, now on medical management with DAPT DVT prophylaxis. Removed Lovenox now on DAPT. CODE STATUS, DO NOT RESUSCITATE Overall plan: Continue in acute care monitor for ongoing blood pressure, continue IV antibiotics, physical therapy consultation for likely swing bed rehabilitation. Monitor neurological checks, optometry consultation
[2016-12-26] MEDS: Insulin Aspart 100 Units/ML 3 ML Pen SUBCUT SCH ×2 (12:10→18:38)
[2016-12-26] MEDS: Aspirin 81 MG Tab.EC PO SCH (18:37)
[2016-12-26] MEDS: Clopidogrel 75 MG Tab PO SCH (21:11)
[2016-12-26] MEDS: Ascorbic Acid 500 MG Tab PO SCH (21:11)
[2016-12-26] MEDS: risperiDONE 0.25 MG Tab PO SCH (21:11)
[2016-12-26] MEDS: Docusate Sodium 100 MG Cap PO SCH (21:11)
[2016-12-27] MEDS: Acetaminophen 650 MG Tab.ER PO SCH ×3 (06:04→21:03)
[2016-12-27] MEDS: Ciprofloxacin in D5W 400 MG in Premix Bag 1 BAG IV SCH ×4 (06:04→17:58)
[2016-12-27] MEDS: Insulin Detemir 100 Units/ML 3 ML Pen SUBCUT SCH (08:12)
[2016-12-27] MEDS: Multivitamins with Minerals/Iron/Folic Acid/Lycopene Tab PO SCH (08:12)
[2016-12-27] MEDS: Calcium Citrate/Vitamin D3 315 MG-250 Unit Tab PO SCH ×2 (08:12→17:56)
[2016-12-27] MEDS: Escitalopram 10 MG Tab PO SCH (08:13)
[2016-12-27] MEDS: Benazepril 10 MG Tab PO SCH ×2 (08:14→21:03)
[2016-12-27] MEDS: amLODIPine 5 MG Tab PO SCH (08:15)
[2016-12-27] MEDS: Clopidogrel 75 MG Tab PO SCH (08:20)
--- NOTE | 2016-12-27 09:42 | PCM.PN ---
- General Info Date of Service: 12/27/16 Subjective Update: Patient states she slept very well last night, feels refreshed today, periodic mild visual hallucinations--always over left shoulder and visual field. Blood pressure improving systolic less than 160 now after increase Norvasc. No longer has headaches. Optometry was not able to see patient yesterday Functional Status: Reports: Pain Controlled, Tolerating Diet, Ambulating, Other (Periodic visual hallucinations). Denies: Incentive Spirometry - Review of Systems General: Reports: Weakness HEENT: Reports: No Symptoms Pulmonary: Denies: Shortness of Breath, Cough, Wheezing Cardiovascular: Denies: Chest Pain, Palpitations, Dyspnea on Exertion Gastrointestinal: Reports: No Symptoms Genitourinary: Reports: No Symptoms Musculoskeletal: Reports: Other (Bilateral knee pain and mild left shoulder pain --left shoulder pain due to fall at home) Skin: Reports: No Symptoms Neurological: Reports: Difficulty Walking (Some gait instability), Weakness, Gait Disturbance. Denies: Confusion, Dizziness, Headache, Numbness, Paresthesia , Tingling, Tremors, Trouble Speaking, Change in Speech Psychiatric: Denies: Confusion - Patient Data Vitals - Most Recent: Last Vital Signs Temp 97.2 F 12/27/16 06:38 Pulse 66 12/27/16 06:38 Resp 16 12/27/16 06:38 BP 156/72 H 12/27/16 08:15 Pulse Ox 93 L 12/27/16 06:38 Weight - Most Recent: 173 lb 4.8 oz I&O - Last 24 Hours: Intake & Output 12/26/16 12/27/16 12/27/16 22:59 06:59 14:59 Intake Total 1060 0 Balance 1060 0 Lab Results Last 24 Hours: Laboratory Results - last 24 hr 12/26/16 12/26/16 12/26/16 Range/Units 11:27 17:32 21:10 POC Glucose 199 H 205 H 195 H (74-106) mg/dl 12/27/16 Range/Units 06:38 POC Glucose 129 H (74-106) mg/dl Med Orders - Current: Current Medications Acetaminophen (Tylenol Arthritis Pain) [address] [facility] Last Admin: 12/27/16 06:04 Dose: 650 mg Amlodipine Besylate (Norvasc) [address] [facility] Last Admin: 12/27/16 08:15 Dose: 10 mg Ascorbic Acid (Vitamin C) [address] [facility] Last Admin: 12/26/16 21:11 Dose: 500 mg Aspirin (Halfprin) 81 mg PO DAILY@1800 [facility] Last Admin: 12/26/16 18:37 Dose: 81 mg Benazepril HCl (Lotensin) [address] [facility] Last Admin: 12/26/16 21:11 Dose: 40 mg Benazepril HCl (Lotensin) [address] [facility] Last Admin: 12/27/16 08:14 Dose: 20 mg Calcium Citrate (Calcium Citrate + D) [address] [facility] Last Admin: 12/27/16 08:12 Dose: 1 tab Clopidogrel Bisulfate (Plavix) [address] [facility] Last Admin: 12/27/16 08:20 Dose: 75 mg Docusate Sodium (Colace) [address] [facility] Last Admin: 12/26/16 21:11 Dose: 100 mg Escitalopram Oxalate (Lexapro) [address] [facility] Last Admin: 12/27/16 08:13 Dose: 10 mg Ciprofloxacin/Dextrose 400 mg/ (Premix) 200 mls @ 200 mls/hr IV Q12H [facility] Last Admin: 12/27/16 06:04 Dose: 200 mls/hr Insulin Aspart (Novolog) 10 unit SUBCUT 1200,1800 [facility] Last Admin: 12/26/16 18:38 Dose: 10 units Insulin Detemir (Levemir) [address] [facility] Last Admin: 12/27/16 08:12 Dose: 75 units Labetalol HCl (Normodyne) 0 mg IVPUSH Q10M PRN; Protocol PRN Reason: Hypertension Last Admin: 12/25/16 06:27 Dose: 20 mg Magnesium Hydroxide (Milk Of Magnesia) 30 ml PO DAILY PRN PRN Reason: Constipation Last Admin: 12/24/16 07:52 Dose: 30 ml Multivitamins/Minerals (Centrum) [address] [facility] Last Admin: 12/27/16 08:12 Dose: 1 tab Ondansetron HCl (Zofran) 4 mg IVPUSH Q4H PRN PRN Reason: Nausea Last Admin: 12/25/16 08:01 Dose: 4 mg Risperidone (Risperidal) 0.[address] [facility] Last Admin: 12/26/16 21:11 Dose: 0.25 mg Sodium Chloride (Syrex Flush) 5 ml FLUSH Q8HR PRN PRN Reason: Keep Vein Open Last Admin: 12/25/16 18:44 Dose: 5 ml Tramadol HCl (Ultram) 50 mg PO Q6H PRN PRN Reason: Pain Last Admin: 12/25/16 08:00 Dose: 50 mg Discontinued Medications Acetaminophen (Tylenol Arthritis Pain) [address] [facility] Last Admin: 12/23/16 18:46 Dose: Not Given Acetaminophen (Tylenol Arthritis Pain) [address] [facility] Last Admin: 12/24/16 02:04 Dose: 650 mg Amlodipine Besylate (Norvasc) [address] [facility] Last Admin: 12/23/16 18:35 Dose: Not Given Amlodipine Besylate (Norvasc) [address] [facility] Last Admin: 12/26/16 08:34 Dose: 5 mg Clopidogrel Bisulfate (Plavix) 75 mg PO ONETIME ONE Stop: 12/25/16 20:43 Last Admin: 12/25/16 21:21 Dose: 75 mg Enoxaparin Sodium (Lovenox) 40 mg SUBCUT DAILY@1800 [facility] Last Admin: 12/25/16 18:27 Dose: 40 mg Hydromorphone HCl (Dilaudid) 0.5 mg IVPUSH ONETIME ONE Stop: 12/23/16 15:39 Last Admin: 12/23/16 16:06 Dose: 0.5 mg Hydromorphone HCl (Dilaudid) 0.5 mg IVPUSH ONETIME ONE Stop: 12/23/16 16:43 Last Admin: 12/23/16 16:45 Dose: 0.5 mg Ciprofloxacin/Dextrose 400 mg/ (Premix) 200 mls @ 200 mls/hr IV ONETIME ONE Stop: 12/23/16 17:17 Last Admin: 12/23/16 16:41 Dose: 200 mls/hr Sodium Chloride (Normal Saline) 1,000 mls @ 75 mls/hr IV ASDIRECTED [facility] Last Admin: 12/24/16 10:02 Dose: 75 mls/hr Sodium Chloride (Normal Saline) 1,000 mls @ 50 mls/hr IV ASDIRECTED [facility] Labetalol HCl (Normodyne) 20 mg IVPUSH ONETIME ONE PRN Reason: Protocol Stop: 12/23/16 15:37 Last Admin: 12/23/16 16:00 Dose: 20 mg Labetalol HCl (Normodyne) 20 mg IVPUSH ONETIME ONE PRN Reason: Protocol Stop: 12/24/16 18:56 Last Admin: 12/24/16 19:08 Dose: 20 mg Metoprolol Tartrate (Lopressor) 25 mg PO ONETIME ONE Stop: 12/24/16 17:20 Last Admin: 12/24/16 17:50 Dose: 25 mg Ondansetron HCl (Zofran) 4 mg IVPUSH ONETIME ONE Stop: 12/23/16 15:40 Last Admin: 12/23/16 15:59 Dose: 4 mg Vitamin B Complex/Vit C/Folic Acid (Nephrocaps) 1 tab PO DAILY [facility] Last Admin: 12/25/16 09:21 Dose: Not Given - Exam Quality Assessment: No: Supplemental Oxygen General: Alert, Oriented, Cooperative, No Acute Distress HEENT: Pupils Equal, Pupils Reactive, EOMI Neck: Supple Lungs: Clear to Auscultation, Normal Respiratory Effort Cardiovascular: Regular Rate, Regular Rhythm GI/Abdominal Exam: Normal Bowel Sounds, Soft, Non-Tender, No Organomegaly, No Distention, No Abnormal Bruit, No Mass, Pelvis Stable Back Exam: No: CVA Tenderness (L), CVA Tenderness (R) Extremities: No Pedal Edema Skin: Warm, Dry, Intact Neurological: Normal Speech, Normal Tone, Cranial Nerves Intact. No: Normal Gait Psy/Mental Status: Alert, Normal Affect, Normal Mood, Hallucinations (Visual) - Problem List Review Problem List Initiated/Reviewed/Updated: Yes - My Orders Last 24 Hours: My Active Orders 12/26/16 11:21 Consult to Physical Therapy [PT Evaluation and Treatment] [CONS] Routine 12/26/16 11:22 amLODIPine [Norvasc] 10 mg PO DAILY 12/26/16 20:00 Clopidogrel [Plavix] 75 mg PO DAILY 12/26/16 21:00 risperiDONE [RisperiDAL] 0.25 mg PO BEDTIME - Plan Plan:: BRIEF HISTORY OF PRESENT ILLNESS 86 year old female admitted through the ED due to headache and hypertension with systolic blood pressures 160s at home. Head CT reported as negative. She also had slightly elevated white count with urinary tract infection and was treated with ciprofloxacin. ED workup normal lactic acid level, and normal troponin EKG NSR. Hypertension labetalol IV was given with some improvement. She spent 2 days in observation status however patient needed further ongoing monitoring since she started having some mild visible visual hallucinations and some concern of possible TIA due to some aphasia CODE STATUS, DO NOT RESUSCITATE Primary assessment/plan: Transient ischemic attack, Plavix initiated, neurology consulted, medical treatment plan includes DAPT. Will place on moderate-intensity therapy lipid. Urinary tract infection, improving neutrophilia, Urine culture mixed lisa, prudent continue treatment with IV antibiotics since does have some evidence of hospital psychosis. Visual hallucinations, neurochecks, sporadic, ongoing over left shoulder, no deficit focal at this time, no aphasia, likely hospital psychosis, Acute headache, resolved, Continue scheduled tylenol. May use tramadol PRN. Hypertension, some improvement. In light of TIA increased Norvasc to 10 mg. continue benazepril 40 mg at bedtime 20 mg a.m. Secondary assessment/plan: Type 2 diabetes mellitus. Accuchecks QID. Stable and controlled with Levemir and NovoLog History of hypercholesterolemia. Not on medication. Placed on Lipitor. Depression. Continue lexapro. Osteoarthritis. Continue tylenol and tramadol. Bilateral carotid artery stenosis, nonoperable, now on medical management with DAPT DVT prophylaxis. Removed Lovenox now on DAPT. CODE STATUS, DO NOT RESUSCITATE Overall plan: Continue in acute care monitor for ongoing blood pressure, continue IV antibiotics, add Lipitor, physical therapy consultation for likely swing bed rehabilitation. Monitor neurological checks, optometry consultation
[2016-12-27] MEDS ORDERED: atorvaSTATin 10 MG Tab PO SCH ×2 (09:45)
[2016-12-27] MEDS: Insulin Aspart 100 Units/ML 3 ML Pen SUBCUT SCH ×2 (11:58→17:56)
[2016-12-27] MEDS: Aspirin 81 MG Tab.EC PO SCH (17:56)
[2016-12-27] MEDS: Ascorbic Acid 500 MG Tab PO SCH (21:03)
[2016-12-27] MEDS: risperiDONE 0.25 MG Tab PO SCH (21:03)
[2016-12-27] MEDS: Docusate Sodium 100 MG Cap PO SCH (21:03)
[2016-12-28] MEDS: Acetaminophen 650 MG Tab.ER PO SCH (05:37)
[2016-12-28] MEDS: Benazepril 10 MG Tab PO SCH ×2 (05:37→09:01)
[2016-12-28] MEDS: Ciprofloxacin in D5W 400 MG in Premix Bag 1 BAG IV SCH ×2 (05:44)
[2016-12-28] MEDS: Multivitamins with Minerals/Iron/Folic Acid/Lycopene Tab PO SCH (08:57)
[2016-12-28] MEDS: Insulin Detemir 100 Units/ML 3 ML Pen SUBCUT SCH (08:57)
[2016-12-28] MEDS: Calcium Citrate/Vitamin D3 315 MG-250 Unit Tab PO SCH (08:57)
[2016-12-28] MEDS: Escitalopram 10 MG Tab PO SCH (09:00)
[2016-12-28] MEDS: Clopidogrel 75 MG Tab PO SCH (09:01)
[2016-12-28] MEDS: amLODIPine 5 MG Tab PO SCH (09:01)
--- NOTE | 2016-12-28 09:09 | PCM.DCSUM1 ---
Discharge Summary - Hospital Course Brief History: Patient was initially admitted into acute care through the ED for HTN and KEARNEY she had been having. She was treated and released through the ED however returned with ongoing headache. She stated she checked her blood pressure at home and it was elevated. Head CT of her head did not show any acute processes. It was noted for her to have a slightly elevated white count with bacteremia so she was admitted for [id number] blood pressures, and to start on IV antibiotics. She is also fallen 2 times in the past month. While she was in acute care stay physical therapy evaluated her and the patient does have some functional limitations and some gait instability and it was decided for her to be placed in swing bed status for rehabilitation. - Discharge Data Discharge Date: 12/28/16 Discharge Disposition: DC/Tfer W/I Hosp To Swing 61 Condition: Good - Patient Summary/Data Complications: Complications included a transient ischemic attack, some confusion and visual hallucinations. Consults: Consultations 12/26/16 11:21 Consult to Physical Therapy [PT Evaluation and Treatment] [CONS] Routine Hospital Course: Hospital course went quite well she did require IV medications and increase in blood pressure medicines in order to obtain fairly decent blood pressure control. She did have some visual hallucinations which we feel are more hospital acquired psychosis rather than any cranial pathology. She is to see optometry today patient did have signs and symptoms of a transient ischemic attack with some confusion. Neurology was consulted and the patient was placed on Plavix. She was also placed on Lipitor and blood pressure medicines were adjusted. - Discharge Plan Prescriptions/Med Rec: amLODIPine [Norvasc] 5 mg PO DAILY #30 tablet Benazepril [Lotensin] 20 mg PO DAILY #60 tablet Ciprofloxacin HCl [Cipro] 500 mg PO BID #12 tablet Home Medications: Home Meds Ascorbic Acid [Vitamin C] 500 mg PO BEDTIME 10/21/14 [History] Aspirin [Halfprin] 81 mg PO DAILY@1800 10/21/14 [History] Benazepril [Lotensin] 40 mg PO BEDTIME 10/21/14 [History] Docusate Sodium [Colace] 100 mg PO BEDTIME 10/21/14 [History] Escitalopram Oxalate [Lexapro] 10 mg PO DAILY 10/21/14 [History] Furosemide [Lasix] 20 mg PO DAILY 10/21/14 [History] Insulin Aspart [NovoLOG] 10 units SUBCUT 1200,1800 10/21/14 [History] Insulin Glarg,Human.Rec.Analog [LantUS Solostar] 75 units SUBCUT DAILY 10/21/14 [History] Multivitamins [Tab-A-Lary] 1 each PO DAILY 10/21/14 [History] traMADol [Ultram] 50 mg PO Q6H PRN 10/21/14 [History] Calcium Carbonate/Vitamin D3 [Calcium 600-Vit D3 800 Tablet] 1 tab PO BIDMEALS 06/01/16 [History] Acetaminophen [Tylenol Arthritis Pain] 650 mg PO Q8H #90 tab.er 06/08/16 [Rx] Calcium Citrate/Vitamin D3 [Calcium Citrate + D] 2 tab PO BIDMEALS #180 tablet 06/08/16 [Rx] Alendronate [Fosamax] 70 mg PO Q7D@0600 12/16/16 [History] Benazepril [Lotensin] 20 mg PO DAILY #60 tablet 12/25/16 [Rx] Ciprofloxacin HCl [Cipro] 500 mg PO BID #12 tablet 12/25/16 [Rx] amLODIPine [Norvasc] 5 mg PO DAILY #30 tablet 12/25/16 [Rx] - Discharge Summary/Plan Comment DC Time >30 min.: Yes Discharge Summary/Plan Comment: Patient will be placed in swing bed for rehabilitation, and due to her functional limitations. Possibility of long-term care placement. Final diagnosis Weakness, functional limitations Osteoarthritis bilateral knees Visual hallucinations Transient ischemic attack Headache Uncontrolled hypertension Urinary tract infection - General Info Functional Status: Reports: Pain Controlled, Tolerating Diet, Ambulating, New Symptoms (Visual hallucinations) - Review of Systems General: Reports: Weakness. Denies: Fatigue, Night Sweats HEENT: Reports: Headaches, Visual Changes Pulmonary: Reports: No Symptoms Cardiovascular: Reports: No Symptoms Gastrointestinal: Reports: No Symptoms Genitourinary: Reports: No Symptoms Musculoskeletal: Reports: No Symptoms, Shoulder Pain (Left shoulder pain however improving) Skin: Reports: No Symptoms Neurological: Reports: Headache, Pre-Existing Deficit, Difficulty Walking, Weakness, Gait Disturbance. Denies: Dizziness, Numbness, Paresthesia, Tremors, Change in Speech Psychiatric: Reports: No Symptoms - Patient Data Vitals - Most Recent: Last Vital Signs Temp 97.3 F 12/28/16 06:04 Pulse 70 12/28/16 06:35 Resp 20 12/28/16 06:04 BP 173/80 H 12/28/16 09:01 Pulse Ox 96 12/28/16 06:04 Weight - Most Recent: 173 lb 4.8 oz I&O - Last 24 hours: Intake & Output 12/27/16 12/28/16 12/28/16 22:59 06:59 14:59 Intake Total 150 0 200 Balance 150 0 200 Lab Results - Last 24 hrs: Laboratory Results - last 24 hr 12/27/16 12/27/16 12/28/16 Range/Units 11:28 20:59 06:49 POC Glucose 152 H 175 H 180 H (74-106) mg/dl Med Orders - Current: Current Medications Acetaminophen (Tylenol Arthritis Pain) 650 mg PO Q8H [facility] Last Admin: 12/28/16 05:37 Dose: 650 mg Amlodipine Besylate (Norvasc) 10 mg PO DAILY [facility] Last Admin: 12/28/16 09:01 Dose: 10 mg Ascorbic Acid (Vitamin C) 500 mg PO BEDTIME [facility] Last Admin: 12/27/16 21:03 Dose: 500 mg Aspirin (Halfprin) 81 mg PO DAILY@1800 [facility] Last Admin: 12/27/16 17:56 Dose: 81 mg Atorvastatin Calcium (Lipitor) 20 mg PO BEDTIME [facility] Last Admin: 12/27/16 21:03 Dose: 20 mg Benazepril HCl (Lotensin) 40 mg PO BEDTIME [facility] Last Admin: 12/27/16 21:03 Dose: 40 mg Benazepril HCl (Lotensin) 20 mg PO DAILY [facility] Last Admin: 12/28/16 09:01 Dose: Not Given Calcium Citrate (Calcium Citrate + D) 1 tab PO BIDMEALS [facility] Last Admin: 12/28/16 08:57 Dose: 1 tab Clopidogrel Bisulfate (Plavix) 75 mg PO DAILY [facility] Last Admin: 12/28/16 09:01 Dose: 75 mg Docusate Sodium (Colace) 100 mg PO BEDTIME [facility] Last Admin: 12/27/16 21:03 Dose: 100 mg Escitalopram Oxalate (Lexapro) 10 mg PO DAILY [facility] Last Admin: 12/28/16 09:00 Dose: 10 mg Ciprofloxacin/Dextrose 400 mg/ (Premix) 200 mls @ 200 mls/hr IV Q12H [facility] Last Admin: 12/28/16 05:44 Dose: 200 mls/hr Insulin Aspart (Novolog) 10 unit SUBCUT 1200,1800 [facility] Last Admin: 12/27/16 17:56 Dose: 10 units Insulin Detemir (Levemir) 75 unit SUBCUT DAILY [facility] Last Admin: 12/28/16 08:57 Dose: 75 units Labetalol HCl (Normodyne) 0 mg IVPUSH Q10M PRN; Protocol PRN Reason: Hypertension Last Admin: 12/25/16 06:27 Dose: 20 mg Magnesium Hydroxide (Milk Of Magnesia) 30 ml PO DAILY PRN PRN Reason: Constipation Last Admin: 12/24/16 07:52 Dose: 30 ml Multivitamins/Minerals (Centrum) 1 tab PO DAILY [facility] Last Admin: 12/28/16 08:57 Dose: 1 tab Ondansetron HCl (Zofran) 4 mg IVPUSH Q4H PRN PRN Reason: Nausea Last Admin: 12/25/16 08:01 Dose: 4 mg Risperidone (Risperidal) 0.25 mg PO BEDTIME [facility] Last Admin: 12/27/16 21:03 Dose: 0.25 mg Sodium Chloride (Syrex Flush) 5 ml FLUSH Q8HR PRN PRN Reason: Keep Vein Open Last Admin: 12/25/16 18:44 Dose: 5 ml Tramadol HCl (Ultram) 50 mg PO Q6H PRN PRN Reason: Pain Last Admin: 12/25/16 08:00 Dose: 50 mg Discontinued Medications Acetaminophen (Tylenol Arthritis Pain) 650 mg PO Q8H [facility] Last Admin: 12/23/16 18:46 Dose: Not Given Acetaminophen (Tylenol Arthritis Pain) 650 mg PO Q8H [facility] Last Admin: 12/24/16 02:04 Dose: 650 mg Amlodipine Besylate (Norvasc) 5 mg PO DAILY [facility] Last Admin: 12/23/16 18:35 Dose: Not Given Amlodipine Besylate (Norvasc) 5 mg PO DAILY [facility] Last Admin: 12/26/16 08:34 Dose: 5 mg Atorvastatin Calcium (Lipitor) 10 mg PO BEDTIME [facility] Clopidogrel Bisulfate (Plavix) 75 mg PO ONETIME ONE Stop: 12/25/16 20:43 Last Admin: 12/25/16 21:21 Dose: 75 mg Enoxaparin Sodium (Lovenox) 40 mg SUBCUT DAILY@1800 [facility] Last Admin: 12/25/16 18:27 Dose: 40 mg Hydromorphone HCl (Dilaudid) 0.5 mg IVPUSH ONETIME ONE Stop: 12/23/16 15:39 Last Admin: 12/23/16 16:06 Dose: 0.5 mg Hydromorphone HCl (Dilaudid) 0.5 mg IVPUSH ONETIME ONE Stop: 12/23/16 16:43 Last Admin: 12/23/16 16:45 Dose: 0.5 mg Ciprofloxacin/Dextrose 400 mg/ (Premix) 200 mls @ 200 mls/hr IV ONETIME ONE Stop: 12/23/16 17:17 Last Admin: 12/23/16 16:41 Dose: 200 mls/hr Sodium Chloride (Normal Saline) 1,000 mls @ 75 mls/hr IV ASDIRECTED [facility] Last Admin: 12/24/16 10:02 Dose: 75 mls/hr Sodium Chloride (Normal Saline) 1,000 mls @ 50 mls/hr IV ASDIRECTED [facility] Labetalol HCl (Normodyne) 20 mg IVPUSH ONETIME ONE PRN Reason: Protocol Stop: 12/23/16 15:37 Last Admin: 12/23/16 16:00 Dose: 20 mg Labetalol HCl (Normodyne) 20 mg IVPUSH ONETIME ONE PRN Reason: Protocol Stop: 12/24/16 18:56 Last Admin: 12/24/16 19:08 Dose: 20 mg Metoprolol Tartrate (Lopressor) 25 mg PO ONETIME ONE Stop: 12/24/16 17:20 Last Admin: 12/24/16 17:50 Dose: 25 mg Ondansetron HCl (Zofran) 4 mg IVPUSH ONETIME ONE Stop: 12/23/16 15:40 Last Admin: 12/23/16 15:59 Dose: 4 mg Vitamin B Complex/Vit C/Folic Acid (Nephrocaps) 1 tab PO DAILY [facility] Last Admin: 12/25/16 09:21 Dose: Not Given - Exam Quality Assessment: Denies: Supplemental Oxygen General: Reports: Alert, Oriented, Cooperative, No Acute Distress HEENT: Reports: Pupils Equal Neck: Reports: Supple Lungs: Reports: Clear to Auscultation, Normal Respiratory Effort Cardiovascular: Reports: Regular Rate, Regular Rhythm GI/Abdominal Exam: Normal Bowel Sounds, Soft, Non-Tender, No Organomegaly, No Distention, No Abnormal Bruit, No Mass, Pelvis Stable Back Exam: Denies: CVA Tenderness (L), CVA Tenderness (R) Extremities: No Pedal Edema Skin: Reports: Warm, Dry, Intact Neurological: Reports: No New Focal Deficit, Normal Speech, Normal Tone, Sensation Intact. Denies: Normal Gait Psy/Mental Status: Reports: Alert, Normal Affect, Normal Mood *Q Meaningful Use (DIS) - VTE *Q VTE Criteria *Q: - Stroke *Q Stroke Criteria *Q: - AMI *Q AMI Criteria *Q:
[2016-12-28] MEDS ORDERED: Benazepril 10 MG Tab PO ONE (09:36)
[2016-12-28 09:48] VITALS: BP 142/72
[2016-12-28] MEDS ORDERED: Benazepril 10 MG Tab PO SCH (21:00)
== END 2016-12-28 10:00 | disposition swing bed (61) | DRG 690 ==
LOC: KA.ED 15:21 → KA.MS 16:37 → OBSVTOIN 12-25 17:20 → KA.MS 12-26 10:45 → UNDODISIN 12-28 09:07
PROVIDERS: ADMIT Physician Assistant Surgical; ATTEND Family Medicine
DX: N39.0 Urinary tract infection, site not specified (principal); G45.9 Transient cerebral ischemic attack, unspecified; R44.3 Hallucinations, unspecified; R51 Headache; I10 Essential (primary) hypertension; F41.9 Anxiety disorder, unspecified; R53.1 Weakness; E86.0 Dehydration; I65.23 Occlusion and stenosis of bilateral carotid arteries; E11.9 Type 2 diabetes mellitus without complications; E78.00 Pure hypercholesterolemia, unspecified; M19.90 Unspecified osteoarthritis, unspecified site; Z88.8 Allergy status to other drugs, medicaments and biological substances; Z79.899 Other long term (current) drug therapy
CPT/HCPCS: 36415 ×2; 80048 ×3; 81001; 82962 ×8; 83605; 84443; 84484; 85025 ×2; 87086; 93005; 96374; 96375; 96376; 99284; A9270 ×23; J0744 ×4; J1170 ×2; J1650 ×2; J1815 ×2; J2405 ×3; J7030 ×2; 96361; 96365; 96366; 96372; 97110-GP; 97162-GP; 99285; G0378

== ENCOUNTER 2016-12-28 08:54 | Inpatient (IN) | payer MEDICARE, OTHER ==
[2016-12-28] MEDS ORDERED: Magnesium Hydroxide 400 MG/5 ML Susp 30 ML Cup PO PRN (10:03)
[2016-12-28] MEDS ORDERED: traMADol 50 MG Tab PO PRN (10:03)
[2016-12-28] MEDS: Insulin Aspart 100 Units/ML 3 ML Pen SUBCUT SCH ×2 (12:10→18:05)
[2016-12-28] MEDS: Acetaminophen 650 MG Tab.ER PO SCH ×2 (14:12→21:02)
[2016-12-28] MEDS: Calcium Citrate/Vitamin D3 315 MG-250 Unit Tab PO SCH (18:06)
[2016-12-28] MEDS: Aspirin 81 MG Tab.EC PO SCH (18:06)
[2016-12-28] MEDS: Ascorbic Acid 500 MG Tab PO SCH (21:01)
[2016-12-28] MEDS: risperiDONE 0.25 MG Tab PO SCH (21:01)
[2016-12-28] MEDS: atorvaSTATin 10 MG Tab PO SCH (21:02)
[2016-12-28] MEDS: Benazepril 10 MG Tab PO SCH (21:02)
[2016-12-28] MEDS: Docusate Sodium 100 MG Cap PO SCH (21:02)
[2016-12-29] MEDS: Acetaminophen 650 MG Tab.ER PO SCH ×3 (06:38→21:12)
[2016-12-29] MEDS: Clopidogrel 75 MG Tab PO SCH (09:24)
[2016-12-29] MEDS: amLODIPine 5 MG Tab PO SCH (09:24)
[2016-12-29] MEDS: Calcium Citrate/Vitamin D3 315 MG-250 Unit Tab PO SCH ×2 (09:26→18:05)
[2016-12-29] MEDS: Insulin Detemir 100 Units/ML 3 ML Pen SUBCUT SCH (09:27)
[2016-12-29] MEDS: Escitalopram 10 MG Tab PO SCH (09:27)
[2016-12-29] MEDS: Multivitamins with Minerals/Iron/Folic Acid/Lycopene Tab PO SCH (09:27)
[2016-12-29] MEDS: Benazepril 10 MG Tab PO SCH ×2 (09:27→21:12)
[2016-12-29] MEDS: Insulin Aspart 100 Units/ML 3 ML Pen SUBCUT SCH ×2 (12:18→18:04)
[2016-12-29] MEDS: Aspirin 81 MG Tab.EC PO SCH (18:05)
[2016-12-29] MEDS: Ascorbic Acid 500 MG Tab PO SCH (21:11)
[2016-12-29] MEDS: atorvaSTATin 10 MG Tab PO SCH (21:11)
[2016-12-29] MEDS: risperiDONE 0.25 MG Tab PO SCH (21:12)
[2016-12-29] MEDS: Docusate Sodium 100 MG Cap PO SCH (21:12)
[2016-12-30] MEDS: Acetaminophen 650 MG Tab.ER PO SCH ×3 (06:39→21:01)
[2016-12-30] MEDS: amLODIPine 5 MG Tab PO SCH (09:01)
[2016-12-30] MEDS: Benazepril 10 MG Tab PO SCH ×2 (09:01→20:59)
[2016-12-30] MEDS: Clopidogrel 75 MG Tab PO SCH (09:01)
[2016-12-30] MEDS: Insulin Detemir 100 Units/ML 3 ML Pen SUBCUT SCH (09:02)
[2016-12-30] MEDS: Multivitamins with Minerals/Iron/Folic Acid/Lycopene Tab PO SCH (09:02)
[2016-12-30] MEDS: Calcium Citrate/Vitamin D3 315 MG-250 Unit Tab PO SCH ×2 (09:02→18:12)
[2016-12-30] MEDS: Escitalopram 10 MG Tab PO SCH (09:02)
[2016-12-30] MEDS: Insulin Aspart 100 Units/ML 3 ML Pen SUBCUT SCH ×2 (11:37→18:12)
[2016-12-30] MEDS: Aspirin 81 MG Tab.EC PO SCH (18:12)
[2016-12-30] MEDS: Docusate Sodium 100 MG Cap PO SCH (20:58)
[2016-12-30] MEDS: atorvaSTATin 10 MG Tab PO SCH (20:59)
[2016-12-30] MEDS: Ascorbic Acid 500 MG Tab PO SCH (20:59)
[2016-12-30] MEDS: risperiDONE 0.25 MG Tab PO SCH (20:59)
[2016-12-31] MEDS: Acetaminophen 650 MG Tab.ER PO SCH ×3 (06:02→21:58)
[2016-12-31] MEDS: Multivitamins with Minerals/Iron/Folic Acid/Lycopene Tab PO SCH (08:44)
[2016-12-31] MEDS: Clopidogrel 75 MG Tab PO SCH (08:44)
[2016-12-31] MEDS: Calcium Citrate/Vitamin D3 315 MG-250 Unit Tab PO SCH ×2 (08:44→17:53)
[2016-12-31] MEDS: Benazepril 10 MG Tab PO SCH ×2 (08:45→21:58)
[2016-12-31] MEDS: Escitalopram 10 MG Tab PO SCH (08:45)
[2016-12-31] MEDS: amLODIPine 5 MG Tab PO SCH (08:45)
[2016-12-31] MEDS: Insulin Detemir 100 Units/ML 3 ML Pen SUBCUT SCH (08:46)
--- NOTE | 2016-12-31 09:13 | PCM.HP ---
H&P History of Present Illness - General Date of Service: 12/28/16 Admit Problem/Dx: Admission Diagnosis/Problem Admission Diagnosis/Problem Hypertension Source of Information: Patient, Family, Old Records, RN History Limitations: Reports: No Limitations - Related Data Allergies/Adverse Reactions: Allergies Allergy/AdvReac Type Severity Reaction Status Date / Time atenolol [From Tenormin] Allergy Dizziness Verified 12/23/16 17:55 cefdinir Allergy Diarrhea Verified 12/23/16 17:55 heart patch Allergy Other Uncoded 12/23/16 17:55 Home Medications: Home Meds Ascorbic Acid [Vitamin C] 500 mg PO BEDTIME 10/21/14 [History] Aspirin [Halfprin] 81 mg PO DAILY@1800 10/21/14 [History] Benazepril [Lotensin] 40 mg PO BEDTIME 10/21/14 [History] Docusate Sodium [Colace] 100 mg PO BEDTIME 10/21/14 [History] Escitalopram Oxalate [Lexapro] 10 mg PO DAILY 10/21/14 [History] Furosemide [Lasix] 20 mg PO DAILY 10/21/14 [History] Insulin Aspart [NovoLOG] 10 units SUBCUT 1200,1800 10/21/14 [History] Insulin Glarg,Human.Rec.Analog [LantUS Solostar] 75 units SUBCUT DAILY 10/21/14 [History] Multivitamins [Tab-A-Lary] 1 each PO DAILY 10/21/14 [History] traMADol [Ultram] 50 mg PO Q6H PRN 10/21/14 [History] Calcium Carbonate/Vitamin D3 [Calcium 600-Vit D3 800 Tablet] 1 tab PO BIDMEALS 06/01/16 [History] Acetaminophen [Tylenol Arthritis Pain] 650 mg PO Q8H #90 tab.er 06/08/16 [Rx] Calcium Citrate/Vitamin D3 [Calcium Citrate + D] 2 tab PO BIDMEALS #180 tablet 06/08/16 [Rx] Alendronate [Fosamax] 70 mg PO Q7D@0600 12/16/16 [History] Benazepril [Lotensin] 20 mg PO DAILY #60 tablet 12/25/16 [Rx] Ciprofloxacin HCl [Cipro] 500 mg PO BID #12 tablet 12/25/16 [Rx] amLODIPine [Norvasc] 5 mg PO DAILY #30 tablet 12/25/16 [Rx] Past Medical History HEENT History: Reports: Cataract Cardiovascular History: Reports: High Cholesterol, Hypertension Respiratory History: Reports: Sleep Apnea Gastrointestinal History: Reports: Chronic Constipation Other Gastrointestinal History: constipation Genitourinary History: Reports: Urinary Incontinence Other Genitourinary History: "not much control anymore" [employer] History: Reports: Musculoskeletal History: Reports: Arthritis, Back Pain, Chronic, Osteoporosis Other Musculoskeletal History: chronic knee pain Neurological History: Reports: Other (See Below) Other Neuro History: mild tremors Psychiatric History: Reports: Anxiety Endocrine/Metabolic History: Reports: Diabetes, Type II Immunologic History: Reports: None - Infectious Disease History Infectious Disease History: Reports: Chicken Pox, Measles, Mumps, Pertussis ( Whooping Cough) - Past Surgical History HEENT Surgical History: Reports: Cataract Surgery Social & Family History - Family History Family Medical History: Noncontributory HEENT: Reports: None Cardiac: Reports: Other (See Below) Respiratory: Reports: None GI: Reports: None : Reports: None OBGYN: Reports: None Musculoskeletal: Reports: None Neurological: Reports: None Psychiatric: Reports: None Endocrine/Metabolic: Reports: None Hematologic: Reports: None Immunologic: Reports: None Dermatologic: Reports: None Oncologic: Reports: None - Tobacco Use Smoking Status *Q: Unknown Ever Smoked Second Hand Smoke Exposure: No - Caffeine Use Caffeine Use: Reports: Coffee - Recreational Drug Use Recreational Drug Use: No H&P Review of Systems - Review of Systems: Review Of Systems: See Below General: Reports: Malaise, Weakness. Denies: Fever, Chills, Decreased Appetite HEENT: Reports: Headaches Pulmonary: Reports: No Symptoms Cardiovascular: Reports: Dyspnea on Exertion, Edema Gastrointestinal: Reports: No Symptoms Genitourinary: Reports: No Symptoms Musculoskeletal: Reports: Shoulder Pain Skin: Reports: No Symptoms Psychiatric: Reports: No Symptoms, Hallucinations (Visual) Neurological: Reports: Headache, Weakness, Gait Disturbance Hematologic/Lymphatic: Reports: No Symptoms Immunologic: Reports: No Symptoms Exam - Exam Exam: See Below - Vital Signs Vital Signs: Last Vital Signs Temp 97.2 F 12/31/16 05:59 Pulse 64 12/31/16 05:59 Resp 20 12/31/16 05:59 BP 147/75 H 12/31/16 08:45 Pulse Ox 95 12/31/16 05:59 Weight: 173 lb 4.8 oz - Exam General: Alert, Oriented, Cooperative. No: Mild Distress HEENT: PERRLA, Hearing Intact, Mucosa Moist & Lula, Nares Patent, Normal Nasal Septum, Posterior Pharynx Clear, Conjunctiva Clear, EOMI, EACs Clear, TMs Clear Neck: Supple, Trachea Midline, 2 Lungs: Clear to Auscultation, Normal Respiratory Effort Cardiovascular: Regular Rate, Regular Rhythm GI/Abdominal Exam: Normal Bowel Sounds, Soft, Non-Tender, No Organomegaly, No Distention, No Abnormal Bruit, No Mass, Pelvis Stable (Female) Exam: Deferred Rectal (Female) Exam: No: Bloody Stool Extremities: Pedal Edema (1+) Skin: Warm, Dry, Intact Neurological: Reflexes Equal Bilateral, Normal Speech, Normal Tone, Abnormal Gait. No: Focal Deficit Neuro Extensive - Mental Status: Alert, Oriented x3, Normal Mood/Affect, Normal Cognition Neuro Extensive - Motor, Sensory, Reflexes: CN II-XII Intact, Normal Gait, Normal Reflexes Psychiatric: Alert, Normal Affect, Normal Mood - Patient Data Lab Results Last 24 hrs: Laboratory Results - last 24 hr 12/30/16 12/30/16 12/30/16 Range/Units 11:29 17:53 20:52 POC Glucose 243 H 123 H 155 H (74-106) mg/dl 12/31/16 Range/Units 05:56 POC Glucose 120 H (74-106) mg/dl *Q Meaningful Use (ADM) - VTE *Q VTE Criteria *Q: - Stroke *Q Stroke Criteria *Q: - AMI *Q AMI Criteria *Q: Problem List Initiated/Reviewed/Updated: Yes Orders Last 24hrs: Medication Orders Acetaminophen (Tylenol Arthritis Pain) 650 mg PO Q8H [facility] Last Admin: 12/31/16 06:02 Dose: 650 mg Admin: 12/30/16 21:01 Dose: 650 mg Admin: 12/30/16 14:21 Dose: 650 mg Admin: 12/30/16 06:39 Dose: 650 mg Admin: 12/29/16 21:12 Dose: 650 mg Admin: 12/29/16 15:07 Dose: 650 mg Admin: 12/29/16 06:38 Dose: 650 mg Admin: 12/28/16 21:02 Dose: 650 mg Admin: 12/28/16 14:12 Dose: 650 mg Amlodipine Besylate (Norvasc) 10 mg PO DAILY [facility] Last Admin: 12/31/16 08:45 Dose: 10 mg Admin: 12/30/16 09:01 Dose: 10 mg Admin: 12/29/16 09:24 Dose: 10 mg Ascorbic Acid (Vitamin C) 500 mg PO BEDTIME [facility] Last Admin: 12/30/16 20:59 Dose: 500 mg Admin: 12/29/16 21:11 Dose: 500 mg Admin: 12/28/16 21:01 Dose: 500 mg Aspirin (Halfprin) 81 mg PO DAILY@1800 [facility] Last Admin: 12/30/16 18:12 Dose: 81 mg Admin: 12/29/16 18:05 Dose: 81 mg Admin: 12/28/16 18:06 Dose: 81 mg Atorvastatin Calcium (Lipitor) 20 mg PO BEDTIME [facility] Last Admin: 12/30/16 20:59 Dose: 20 mg Admin: 12/29/16 21:11 Dose: 20 mg Admin: 12/28/16 21:02 Dose: 20 mg Benazepril HCl (Lotensin) 40 mg PO BID [facility] Last Admin: 12/31/16 08:45 Dose: 40 mg Admin: 12/30/16 20:59 Dose: 40 mg Admin: 12/30/16 09:01 Dose: 40 mg Admin: 12/29/16 21:12 Dose: 40 mg Admin: 12/29/16 09:27 Dose: 40 mg Admin: 12/28/16 21:02 Dose: 40 mg Calcium Citrate (Calcium Citrate + D) 1 tab PO BIDMEALS [facility] Last Admin: 12/31/16 08:44 Dose: 1 tab Admin: 12/30/16 18:12 Dose: 1 tab Admin: 12/30/16 09:02 Dose: 1 tab Admin: 12/29/16 18:05 Dose: 1 tab Admin: 12/29/16 09:26 Dose: 1 tab Admin: 12/28/16 18:06 Dose: 1 tab Clopidogrel Bisulfate (Plavix) 75 mg PO DAILY [facility] Last Admin: 12/31/16 08:44 Dose: 75 mg Admin: 12/30/16 09:01 Dose: 75 mg Admin: 12/29/16 09:24 Dose: 75 mg Docusate Sodium (Colace) 100 mg PO BEDTIME [facility] Last Admin: 12/30/16 20:58 Dose: 100 mg Admin: 12/29/16 21:12 Dose: 100 mg Admin: 12/28/16 21:02 Dose: 100 mg Escitalopram Oxalate (Lexapro) 10 mg PO DAILY [facility] Last Admin: 12/31/16 08:45 Dose: 10 mg Admin: 12/30/16 09:02 Dose: 10 mg Admin: 12/29/16 09:27 Dose: 10 mg Insulin Aspart (Novolog) 10 unit SUBCUT 1200,1800 [facility] Last Admin: 12/30/16 18:12 Dose: 10 unit Admin: 12/30/16 11:37 Dose: 10 unit Admin: 12/29/16 18:04 Dose: 10 unit Admin: 12/29/16 12:18 Dose: 10 unit Admin: 12/28/16 18:05 Dose: 10 unit Admin: 12/28/16 12:10 Dose: 10 unit Insulin Detemir (Levemir) 75 unit SUBCUT DAILY [facility] Last Admin: 12/31/16 08:46 Dose: 75 unit Admin: 12/30/16 09:02 Dose: 75 unit Admin: 12/29/16 09:27 Dose: 75 unit Magnesium Hydroxide (Milk Of Magnesia) 30 ml PO DAILY PRN PRN Reason: Constipation Multivitamins/Minerals (Centrum) 1 tab PO DAILY [facility] Last Admin: 12/31/16 08:44 Dose: 1 tab Admin: 12/30/16 09:02 Dose: 1 tab Admin: 12/29/16 09:27 Dose: 1 tab Risperidone (Risperidal) 0.25 mg PO BEDTIME [facility] Last Admin: 12/30/16 20:59 Dose: 0.25 mg Admin: 12/29/16 21:12 Dose: 0.25 mg Admin: 12/28/16 21:01 Dose: 0.25 mg Tramadol HCl (Ultram) 50 mg PO Q6H PRN PRN Reason: Pain Assessment/Plan Comment:: BRIEF HISTORY OF PRESENT ILLNESS 86-year-old female was initially admitted into acute care through the ED for HTN and KEARNEY. She was treated and released through the ED however returned with ongoing headache. She stated she checked her blood pressure at home and it was elevated. Head CT upon initial admission did not show any acute processes. It was noted for her to have a slightly elevated white count with bacteremia so she was admitted for elevated and unstable BPs, along with IV antibiotics. She is also fallen 2x in the past month and remains high fall risk especially with her bilateral knee pathology and pain. While she was in acute care stay physical therapy evaluated her and the patient does have some functional limitations with gait instability and it was decided for her to be placed in swing bed status for rehabilitation. CODE STATUS, DO NOT RESUSCITATE Primary assessment/plan: Weakness, high fall risk. Lower extremities, will place in physical therapy rehabilitation today. Transient ischemic attack, Plavix initiated, neurology consulted while in acute care, medical treatment plan includes DAPT. Now on moderate-intensity statin therapy. Urinary tract infection, improving neutrophilia, Urine culture mixed lisa, prudent continue treatment with IV antibiotics since does have some evidence of hospital psychosis. Visual hallucinations, neurochecks, sporadic, ongoing over left shoulder, no deficit focal at this time, no aphasia, likely hospital psychosis, optometry appointment Hypertension, some improvement. Norvasc to 10 mg. been as a pill 40 mg by mouth twice a day Secondary assessment/plan: Type 2 diabetes mellitus. Accuchecks QID. Stable and controlled with Levemir and NovoLog History of hypercholesterolemia. Now on moderate intensity statin due to TIA despite lipid levels Depression. Continue lexapro. Osteoarthritis. Continue tylenol and tramadol. Bilateral carotid artery stenosis, nonoperable, now on medical management with DAPT DVT prophylaxis. Removed Lovenox now on DAPT. CODE STATUS, DO NOT RESUSCITATE Overall plan: We'll place in physical therapy today for rehabilitation due to her gait instability and high fall risk and subsequent falls at home. Optometry appointment
--- NOTE | 2016-12-31 09:14 | PCM.PN ---
- General Info Date of Service: 12/30/16 Functional Status: Reports: Pain Controlled, Tolerating Diet, Ambulating, Other (no longer has headaches. ). Denies: New Symptoms - Review of Systems General: Reports: Weakness. Denies: Fever HEENT: Denies: Headaches Pulmonary: Reports: No Symptoms Cardiovascular: Reports: No Symptoms Gastrointestinal: Reports: No Symptoms Genitourinary: Denies: Incontinence Musculoskeletal: Reports: No Symptoms Skin: Reports: No Symptoms Neurological: Reports: Difficulty Walking, Weakness, Gait Disturbance. Denies: Confusion, Dizziness, Headache, Numbness, Seizure, Syncope, Tingling, Tremors, Trouble Speaking, Change in Speech Psychiatric: Denies: Hallucinations - Patient Data Vitals - Most Recent: Last Vital Signs Temp 97.2 F 12/31/16 05:59 Pulse 64 12/31/16 05:59 Resp 20 12/31/16 05:59 BP 147/75 H 12/31/16 08:45 Pulse Ox 95 12/31/16 05:59 Weight - Most Recent: 173 lb 4.8 oz I&O - Last 24 Hours: Intake & Output 12/30/16 12/31/16 12/31/16 22:59 06:59 14:59 Intake Total 250 200 Balance 250 200 Lab Results Last 24 Hours: Laboratory Results - last 24 hr 12/30/16 12/30/16 12/30/16 Range/Units 11:29 17:53 20:52 POC Glucose 243 H 123 H 155 H (74-106) mg/dl 12/31/16 Range/Units 05:56 POC Glucose 120 H (74-106) mg/dl Med Orders - Current: Current Medications Acetaminophen (Tylenol Arthritis Pain) 650 mg PO Q8H [facility] Last Admin: 12/31/16 06:02 Dose: 650 mg Amlodipine Besylate (Norvasc) 10 mg PO DAILY [facility] Last Admin: 12/31/16 08:45 Dose: 10 mg Ascorbic Acid (Vitamin C) 500 mg PO BEDTIME [facility] Last Admin: 12/30/16 20:59 Dose: 500 mg Aspirin (Halfprin) 81 mg PO DAILY@1800 [facility] Last Admin: 12/30/16 18:12 Dose: 81 mg Atorvastatin Calcium (Lipitor) 20 mg PO BEDTIME [facility] Last Admin: 12/30/16 20:59 Dose: 20 mg Benazepril HCl (Lotensin) 40 mg PO BID [facility] Last Admin: 12/31/16 08:45 Dose: 40 mg Calcium Citrate (Calcium Citrate + D) 1 tab PO BIDMEALS [facility] Last Admin: 12/31/16 08:44 Dose: 1 tab Clopidogrel Bisulfate (Plavix) 75 mg PO DAILY [facility] Last Admin: 12/31/16 08:44 Dose: 75 mg Docusate Sodium (Colace) 100 mg PO BEDTIME [facility] Last Admin: 12/30/16 20:58 Dose: 100 mg Escitalopram Oxalate (Lexapro) 10 mg PO DAILY [facility] Last Admin: 12/31/16 08:45 Dose: 10 mg Insulin Aspart (Novolog) 10 unit SUBCUT 1200,1800 [facility] Last Admin: 12/30/16 18:12 Dose: 10 unit Insulin Detemir (Levemir) 75 unit SUBCUT DAILY [facility] Last Admin: 12/31/16 08:46 Dose: 75 unit Magnesium Hydroxide (Milk Of Magnesia) 30 ml PO DAILY PRN PRN Reason: Constipation Multivitamins/Minerals (Centrum) 1 tab PO DAILY [facility] Last Admin: 12/31/16 08:44 Dose: 1 tab Risperidone (Risperidal) 0.25 mg PO BEDTIME [facility] Last Admin: 12/30/16 20:59 Dose: 0.25 mg Tramadol HCl (Ultram) 50 mg PO Q6H PRN PRN Reason: Pain - Exam Quality Assessment: No: Supplemental Oxygen General: Alert, Oriented Neck: Supple Lungs: Clear to Auscultation, Normal Respiratory Effort Cardiovascular: Regular Rate, Regular Rhythm (Female) Exam: Deferred Back Exam: No: CVA Tenderness (L), CVA Tenderness (R) Extremities: No Pedal Edema Peripheral Pulses: 2+: Radial (L), Radial (R) Neurological: Strength Equal Bilateral, Sensation Intact, Cranial Nerves Intact Psy/Mental Status: Alert, Normal Affect, Normal Mood - Problem List Review Problem List Initiated/Reviewed/Updated: Yes - Plan Plan:: 86-year-old female was initially admitted into acute care through the ED for HTN and KEARNEY. She was treated and released through the ED however returned with ongoing headache. She stated she checked her blood pressure at home and it was elevated. Head CT upon initial admission did not show any acute processes. It was noted for her to have a slightly elevated white count with bacteremia so she was admitted for elevated and unstable BPs, along with IV antibiotics. She is also fallen 2x in the past month and remains high fall risk especially with her bilateral knee pathology and pain. While she was in acute care stay physical therapy evaluated her and the patient does have some functional limitations with gait instability and it was decided for her to be placed in swing bed status for rehabilitation. CODE STATUS, DO NOT RESUSCITATE Primary assessment/plan: Weakness, high fall risk. Lower extremities, continue with physical therapy. Transient ischemic attack, Plavix initiated, neurology consulted while in acute care, medical treatment plan includes DAPT. Now on moderate-intensity statin therapy. Urinary tract infection, resolved, off antibiotics. 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 optometry appointment Hypertension, much improvement, continue with Norvasc 10 mg. Lotensin 40 mg by mouth twice a day Secondary assessment/plan: Type 2 diabetes mellitus. Accuchecks QID. Stable and controlled with Levemir and NovoLog History of hypercholesterolemia. Now on moderate intensity statin due to TIA despite lipid levels Depression. Continue lexapro. Osteoarthritis. Continue tylenol and tramadol. Bilateral carotid artery stenosis, nonoperable, now on medical management with DAPT DVT prophylaxis. Removed Lovenox now on DAPT. CODE STATUS, DO NOT RESUSCITATE Overall plan: Continue with physical therapy. Reviewed notes, goals include for the patient to tolerate 2.0 METs activity x 10 min while keeping BP <200/80 in order to reduce cadiovascular compromise with ADLs, 2-3 weeks.
[2016-12-31] MEDS: Insulin Aspart 100 Units/ML 3 ML Pen SUBCUT SCH ×2 (12:00→17:53)
[2016-12-31] MEDS: Aspirin 81 MG Tab.EC PO SCH (17:53)
[2016-12-31] MEDS: atorvaSTATin 10 MG Tab PO SCH (21:58)
[2016-12-31] MEDS: risperiDONE 0.25 MG Tab PO SCH (21:58)
[2016-12-31] MEDS: Docusate Sodium 100 MG Cap PO SCH (21:58)
[2016-12-31] MEDS: Ascorbic Acid 500 MG Tab PO SCH (21:58)
[2017-01-01] MEDS: Acetaminophen 650 MG Tab.ER PO SCH ×3 (06:44→21:41)
[2017-01-01] MEDS: Escitalopram 10 MG Tab PO SCH (08:04)
[2017-01-01] MEDS: Multivitamins with Minerals/Iron/Folic Acid/Lycopene Tab PO SCH (08:04)
[2017-01-01] MEDS: Calcium Citrate/Vitamin D3 315 MG-250 Unit Tab PO SCH ×2 (08:04→17:43)
[2017-01-01] MEDS: Clopidogrel 75 MG Tab PO SCH (08:04)
[2017-01-01] MEDS: Benazepril 10 MG Tab PO SCH ×2 (08:42→20:50)
[2017-01-01] MEDS: Insulin Detemir 100 Units/ML 3 ML Pen SUBCUT SCH (08:43)
[2017-01-01] MEDS: amLODIPine 5 MG Tab PO SCH (08:43)
[2017-01-01] MEDS: Insulin Aspart 100 Units/ML 3 ML Pen SUBCUT SCH ×2 (11:57→17:43)
[2017-01-01] MEDS: Aspirin 81 MG Tab.EC PO SCH (17:43)
[2017-01-01] MEDS: atorvaSTATin 10 MG Tab PO SCH (20:49)
[2017-01-01] MEDS: Docusate Sodium 100 MG Cap PO SCH (20:49)
[2017-01-01] MEDS: Ascorbic Acid 500 MG Tab PO SCH (20:50)
[2017-01-01] MEDS: risperiDONE 0.25 MG Tab PO SCH (20:54)
[2017-01-02] MEDS: Acetaminophen 650 MG Tab.ER PO SCH ×3 (06:24→21:56)
[2017-01-02] MEDS: Multivitamins with Minerals/Iron/Folic Acid/Lycopene Tab PO SCH (08:25)
[2017-01-02] MEDS: Insulin Detemir 100 Units/ML 3 ML Pen SUBCUT SCH (08:25)
[2017-01-02] MEDS: Calcium Citrate/Vitamin D3 315 MG-250 Unit Tab PO SCH ×2 (08:25→17:48)
[2017-01-02] MEDS: Escitalopram 10 MG Tab PO SCH (08:26)
[2017-01-02] MEDS: amLODIPine 5 MG Tab PO SCH (08:27)
[2017-01-02] MEDS: Clopidogrel 75 MG Tab PO SCH (08:28)
[2017-01-02] MEDS: Benazepril 10 MG Tab PO SCH ×2 (08:28→21:57)
[2017-01-02 08:43] LABS: CHLORIDE,CL 108 mmol/L (98-115); SODIUM,NA 144 mmol/L (136-145)
[2017-01-02] MEDS: Insulin Aspart 100 Units/ML 3 ML Pen SUBCUT SCH ×2 (11:52→17:48)
[2017-01-02] MEDS: Aspirin 81 MG Tab.EC PO SCH (17:48)
[2017-01-02] MEDS: Docusate Sodium 100 MG Cap PO SCH (21:56)
[2017-01-02] MEDS: Ascorbic Acid 500 MG Tab PO SCH (21:56)
[2017-01-02] MEDS: risperiDONE 0.25 MG Tab PO SCH (21:56)
[2017-01-02] MEDS: atorvaSTATin 10 MG Tab PO SCH (21:57)
[2017-01-03] MEDS: Acetaminophen 650 MG Tab.ER PO SCH ×3 (06:30→21:48)
[2017-01-03] MEDS: Calcium Citrate/Vitamin D3 315 MG-250 Unit Tab PO SCH ×2 (08:28→17:58)
[2017-01-03] MEDS: Insulin Detemir 100 Units/ML 3 ML Pen SUBCUT SCH (08:28)
[2017-01-03] MEDS: Multivitamins with Minerals/Iron/Folic Acid/Lycopene Tab PO SCH (08:28)
[2017-01-03] MEDS: amLODIPine 5 MG Tab PO SCH (08:29)
[2017-01-03] MEDS: Escitalopram 10 MG Tab PO SCH (08:29)
[2017-01-03] MEDS: Benazepril 10 MG Tab PO SCH ×2 (08:29→21:46)
[2017-01-03] MEDS: Clopidogrel 75 MG Tab PO SCH (08:30)
[2017-01-03] MEDS: Insulin Aspart 100 Units/ML 3 ML Pen SUBCUT SCH ×2 (11:58→17:58)
[2017-01-03] MEDS: Aspirin 81 MG Tab.EC PO SCH (17:58)
[2017-01-03] MEDS: atorvaSTATin 10 MG Tab PO SCH (21:45)
[2017-01-03] MEDS: Docusate Sodium 100 MG Cap PO SCH (21:45)
[2017-01-03] MEDS: risperiDONE 0.25 MG Tab PO SCH (21:47)
[2017-01-03] MEDS: Ascorbic Acid 500 MG Tab PO SCH (21:47)
[2017-01-04] MEDS: Acetaminophen 650 MG Tab.ER PO SCH ×3 (06:24→21:11)
[2017-01-04] MEDS: Insulin Detemir 100 Units/ML 3 ML Pen SUBCUT SCH (08:42)
[2017-01-04] MEDS: Calcium Citrate/Vitamin D3 315 MG-250 Unit Tab PO SCH ×2 (08:46→18:52)
[2017-01-04] MEDS: Escitalopram 10 MG Tab PO SCH (08:46)
[2017-01-04] MEDS: Multivitamins with Minerals/Iron/Folic Acid/Lycopene Tab PO SCH (08:46)
[2017-01-04] MEDS: Clopidogrel 75 MG Tab PO SCH (08:46)
[2017-01-04] MEDS: amLODIPine 5 MG Tab PO SCH (08:47)
[2017-01-04] MEDS: Benazepril 10 MG Tab PO SCH ×2 (08:48→21:12)
[2017-01-04] MEDS: Insulin Aspart 100 Units/ML 3 ML Pen SUBCUT SCH ×2 (12:16→18:53)
[2017-01-04] MEDS: Aspirin 81 MG Tab.EC PO SCH (18:52)
[2017-01-04] MEDS: Docusate Sodium 100 MG Cap PO SCH (21:12)
[2017-01-04] MEDS: atorvaSTATin 10 MG Tab PO SCH (21:12)
[2017-01-04] MEDS: risperiDONE 0.25 MG Tab PO SCH (21:12)
[2017-01-04] MEDS: Ascorbic Acid 500 MG Tab PO SCH (21:12)
[2017-01-05] MEDS: Acetaminophen 650 MG Tab.ER PO SCH ×4 (06:45→21:37)
[2017-01-05] MEDS: Multivitamins with Minerals/Iron/Folic Acid/Lycopene Tab PO SCH (08:48)
[2017-01-05] MEDS: Calcium Citrate/Vitamin D3 315 MG-250 Unit Tab PO SCH ×2 (08:48→17:55)
[2017-01-05] MEDS: Clopidogrel 75 MG Tab PO SCH (08:49)
[2017-01-05] MEDS: Escitalopram 10 MG Tab PO SCH (08:49)
[2017-01-05] MEDS: Benazepril 10 MG Tab PO SCH ×2 (08:50→20:30)
[2017-01-05] MEDS: amLODIPine 5 MG Tab PO SCH (08:50)
[2017-01-05] MEDS: Insulin Detemir 100 Units/ML 3 ML Pen SUBCUT SCH (08:51)
[2017-01-05] MEDS: Insulin Aspart 100 Units/ML 3 ML Pen SUBCUT SCH ×2 (12:05→17:56)
[2017-01-05] MEDS: Aspirin 81 MG Tab.EC PO SCH (17:55)
[2017-01-05] MEDS: risperiDONE 0.25 MG Tab PO SCH (20:30)
[2017-01-05] MEDS: Docusate Sodium 100 MG Cap PO SCH (20:30)
[2017-01-05] MEDS: Ascorbic Acid 500 MG Tab PO SCH (20:30)
[2017-01-05] MEDS: atorvaSTATin 10 MG Tab PO SCH (20:31)
[2017-01-06] MEDS: Acetaminophen 650 MG Tab.ER PO SCH ×3 (06:21→21:32)
[2017-01-06] MEDS: Escitalopram 10 MG Tab PO SCH (08:36)
[2017-01-06] MEDS: Calcium Citrate/Vitamin D3 315 MG-250 Unit Tab PO SCH ×2 (08:36→17:35)
[2017-01-06] MEDS: Multivitamins with Minerals/Iron/Folic Acid/Lycopene Tab PO SCH (08:36)
[2017-01-06] MEDS: Benazepril 10 MG Tab PO SCH ×2 (08:36→20:49)
[2017-01-06] MEDS: Clopidogrel 75 MG Tab PO SCH (08:37)
[2017-01-06] MEDS: amLODIPine 5 MG Tab PO SCH (08:37)
[2017-01-06] MEDS: Insulin Detemir 100 Units/ML 3 ML Pen SUBCUT SCH (08:39)
[2017-01-06] MEDS: Insulin Aspart 100 Units/ML 3 ML Pen SUBCUT SCH ×2 (12:03→17:34)
[2017-01-06] MEDS: Aspirin 81 MG Tab.EC PO SCH (17:35)
[2017-01-06] MEDS: Docusate Sodium 100 MG Cap PO SCH (20:48)
[2017-01-06] MEDS: atorvaSTATin 10 MG Tab PO SCH (20:49)
[2017-01-06] MEDS: Ascorbic Acid 500 MG Tab PO SCH (20:50)
[2017-01-06] MEDS: risperiDONE 0.25 MG Tab PO SCH (20:50)
[2017-01-07] MEDS: Acetaminophen 650 MG Tab.ER PO SCH ×3 (06:13→22:03)
[2017-01-07] MEDS: Insulin Detemir 100 Units/ML 3 ML Pen SUBCUT SCH (08:19)
[2017-01-07] MEDS: Calcium Citrate/Vitamin D3 315 MG-250 Unit Tab PO SCH ×2 (08:20→17:42)
[2017-01-07] MEDS: Escitalopram 10 MG Tab PO SCH (08:20)
[2017-01-07] MEDS: Clopidogrel 75 MG Tab PO SCH (08:20)
[2017-01-07] MEDS: Multivitamins with Minerals/Iron/Folic Acid/Lycopene Tab PO SCH (08:20)
[2017-01-07] MEDS: amLODIPine 5 MG Tab PO SCH (08:21)
[2017-01-07] MEDS: Benazepril 10 MG Tab PO SCH ×2 (08:21→20:55)
[2017-01-07] MEDS: Insulin Aspart 100 Units/ML 3 ML Pen SUBCUT SCH ×2 (12:03→17:45)
[2017-01-07] MEDS: Aspirin 81 MG Tab.EC PO SCH (17:42)
[2017-01-07] MEDS: Docusate Sodium 100 MG Cap PO SCH (20:54)
[2017-01-07] MEDS: atorvaSTATin 10 MG Tab PO SCH (20:54)
[2017-01-07] MEDS: Ascorbic Acid 500 MG Tab PO SCH (20:54)
[2017-01-07] MEDS: risperiDONE 0.25 MG Tab PO SCH (22:03)
[2017-01-08] MEDS: Acetaminophen 650 MG Tab.ER PO SCH ×3 (06:36→21:17)
[2017-01-08] MEDS: Multivitamins with Minerals/Iron/Folic Acid/Lycopene Tab PO SCH (08:52)
[2017-01-08] MEDS: Calcium Citrate/Vitamin D3 315 MG-250 Unit Tab PO SCH ×2 (08:53→17:55)
[2017-01-08] MEDS: Escitalopram 10 MG Tab PO SCH (08:53)
[2017-01-08] MEDS: Clopidogrel 75 MG Tab PO SCH (08:53)
[2017-01-08] MEDS: amLODIPine 5 MG Tab PO SCH (08:54)
[2017-01-08] MEDS: Benazepril 10 MG Tab PO SCH ×2 (08:55→21:17)
[2017-01-08] MEDS: Insulin Detemir 100 Units/ML 3 ML Pen SUBCUT SCH (08:55)
--- NOTE | 2017-01-08 11:06 | PCM.PN ---
- General Info Date of Service: 01/04/17 Functional Status: Reports: Pain Controlled, Tolerating Diet, Ambulating. Denies: New Symptoms - Review of Systems General: Denies: Fever, Weakness Pulmonary: Reports: No Symptoms Cardiovascular: Reports: No Symptoms Gastrointestinal: Reports: No Symptoms Genitourinary: Reports: No Symptoms Musculoskeletal: Reports: Shoulder Pain (Shoulder pain improving however ongoing back pain) Neurological: Reports: Difficulty Walking (Difficulty walking mainly due to bilateral knee pain), Weakness Psychiatric: Reports: No Symptoms - Patient Data Vitals - Most Recent: Last Vital Signs Temp 97.9 F 01/08/17 06:39 Pulse 63 01/08/17 06:39 Resp 16 01/08/17 06:39 BP 140/63 01/08/17 08:55 Pulse Ox 95 01/08/17 06:39 Weight - Most Recent: 173 lb I&O - Last 24 Hours: Intake & Output 01/07/17 01/08/17 01/08/17 22:59 06:59 14:59 Intake Total 400 50 Balance 400 50 Lab Results Last 24 Hours: Laboratory Results - last 24 hr 01/07/17 01/07/17 01/08/17 Range/Units 11:28 17:41 06:35 POC Glucose 167 H 132 H 110 H (74-106) mg/dl Med Orders - Current: Current Medications Acetaminophen (Tylenol Arthritis Pain) 650 mg PO Q8H [facility] Last Admin: 01/08/17 06:36 Dose: 650 mg Amlodipine Besylate (Norvasc) 10 mg PO DAILY [facility] Last Admin: 01/08/17 08:54 Dose: 10 mg Ascorbic Acid (Vitamin C) 500 mg PO BEDTIME [facility] Last Admin: 01/07/17 20:54 Dose: 500 mg Aspirin (Halfprin) 81 mg PO DAILY@1800 [facility] Last Admin: 01/07/17 17:42 Dose: 81 mg Atorvastatin Calcium (Lipitor) 20 mg PO BEDTIME [facility] Last Admin: 01/07/17 20:54 Dose: 20 mg Benazepril HCl (Lotensin) 40 mg PO BID [facility] Last Admin: 01/08/17 08:55 Dose: 40 mg Calcium Citrate (Calcium Citrate + D) 1 tab PO BIDMEALS [facility] Last Admin: 01/08/17 08:53 Dose: 1 tab Clopidogrel Bisulfate (Plavix) 75 mg PO DAILY [facility] Last Admin: 01/08/17 08:53 Dose: 75 mg Docusate Sodium (Colace) 100 mg PO BEDTIME [facility] Last Admin: 01/07/17 20:54 Dose: 100 mg Escitalopram Oxalate (Lexapro) 10 mg PO DAILY [facility] Last Admin: 01/08/17 08:53 Dose: 10 mg Insulin Aspart (Novolog) 10 unit SUBCUT 1200,1800 [facility] Last Admin: 01/07/17 17:45 Dose: 10 unit Insulin Detemir (Levemir) 75 unit SUBCUT DAILY [facility] Last Admin: 01/08/17 08:55 Dose: 75 unit Magnesium Hydroxide (Milk Of Magnesia) 30 ml PO DAILY PRN PRN Reason: Constipation Multivitamins/Minerals (Centrum) 1 tab PO DAILY [facility] Last Admin: 01/08/17 08:52 Dose: 1 tab Risperidone (Risperidal) 0.25 mg PO BEDTIME [facility] Last Admin: 01/07/17 22:03 Dose: 0.25 mg Tramadol HCl (Ultram) 50 mg PO Q6H PRN PRN Reason: Pain - Exam Quality Assessment: No: Supplemental Oxygen General: Alert, Oriented Neck: Supple Lungs: Clear to Auscultation, Normal Respiratory Effort Cardiovascular: Regular Rate, Regular Rhythm GI/Abdominal Exam: Soft (Female) Exam: Deferred Back Exam: No: CVA Tenderness (L), CVA Tenderness (R) Skin: Warm, Dry, Intact Neurological: No New Focal Deficit Psy/Mental Status: Alert, Normal Affect, Normal Mood - Problem List Review Problem List Initiated/Reviewed/Updated: Yes - Plan Plan:: 86-year-old female was initially admitted into acute care through the ED for HTN and KEARNEY. She was treated and released through the ED however returned with ongoing headache. She stated she checked her blood pressure at home and it was elevated. Head CT upon initial admission did not show any acute processes. It was noted for her to have a slightly elevated white count with bacteremia so she was admitted for elevated and unstable BPs, along with IV antibiotics. She is also fallen 2x in the past month and remains high fall risk especially with her bilateral knee pathology and pain. While she was in acute care stay physical therapy evaluated her and the patient does have some functional limitations with gait instability and it was decided for her to be placed in swing bed status for rehabilitation. CODE STATUS, DO NOT RESUSCITATE Primary assessment/plan: Weakness, much improvement. Lower extremities bilateral knees, continue with physical therapy. See overall plan regarding PT services below Transient ischemic attack, Plavix initiated, neurology consulted while in acute care, medical treatment plan includes DAPT. Now on moderate-intensity statin therapy. Much improved. Visual hallucinations, improving, sporadic, no aphasia, likely hospital psychosis placed on Risperdal 0.25 mg by mouth at bedtime. optometry appointment Hypertension, much improvement, continue with Norvasc 10 mg. Lotensin 40 mg by mouth twice a day Secondary assessment/plan: Type 2 diabetes mellitus. Accuchecks QID. Stable and controlled with Levemir and NovoLog History of hypercholesterolemia. Now on moderate intensity statin due to TIA despite lipid levels Depression. Continue lexapro. Osteoarthritis. Continue tylenol and tramadol. Bilateral carotid artery stenosis, nonoperable, now on medical management with DAPT DVT prophylaxis. Removed Lovenox now on DAPT. CODE STATUS, DO NOT RESUSCITATE Overall plan: Continue with physical therapy. Reviewed notes, Pt would benefit from continued services here at [place] [facility] 1-2 more weeks to improve balance with possible DC to [facility] with outpatient or HH therapy services.
[2017-01-08] MEDS: Insulin Aspart 100 Units/ML 3 ML Pen SUBCUT SCH ×2 (12:11→17:55)
[2017-01-08] MEDS: Aspirin 81 MG Tab.EC PO SCH (17:55)
[2017-01-08] MEDS: atorvaSTATin 10 MG Tab PO SCH (21:17)
[2017-01-08] MEDS: Ascorbic Acid 500 MG Tab PO SCH (21:17)
[2017-01-08] MEDS: Docusate Sodium 100 MG Cap PO SCH (21:17)
[2017-01-08] MEDS: risperiDONE 0.25 MG Tab PO SCH (21:17)
[2017-01-09] MEDS: Acetaminophen 650 MG Tab.ER PO SCH ×3 (06:29→21:18)
[2017-01-09] MEDS: Benazepril 10 MG Tab PO SCH ×2 (08:19→21:18)
[2017-01-09] MEDS: Insulin Detemir 100 Units/ML 3 ML Pen SUBCUT SCH (08:20)
[2017-01-09] MEDS: Multivitamins with Minerals/Iron/Folic Acid/Lycopene Tab PO SCH (08:20)
[2017-01-09] MEDS: Calcium Citrate/Vitamin D3 315 MG-250 Unit Tab PO SCH ×2 (08:20→18:22)
[2017-01-09] MEDS: amLODIPine 5 MG Tab PO SCH (08:21)
[2017-01-09] MEDS: Escitalopram 10 MG Tab PO SCH (08:22)
[2017-01-09] MEDS: Clopidogrel 75 MG Tab PO SCH (08:22)
[2017-01-09] MEDS: Insulin Aspart 100 Units/ML 3 ML Pen SUBCUT SCH ×2 (12:08→18:23)
[2017-01-09] MEDS: Aspirin 81 MG Tab.EC PO SCH (18:22)
[2017-01-09] MEDS: atorvaSTATin 10 MG Tab PO SCH (21:17)
[2017-01-09] MEDS: risperiDONE 0.25 MG Tab PO SCH (21:18)
[2017-01-09] MEDS: Docusate Sodium 100 MG Cap PO SCH (21:18)
[2017-01-09] MEDS: Ascorbic Acid 500 MG Tab PO SCH (21:21)
[2017-01-10] MEDS: Acetaminophen 650 MG Tab.ER PO SCH ×3 (06:29→21:00)
[2017-01-10] MEDS: Benazepril 10 MG Tab PO SCH ×2 (08:40→21:01)
[2017-01-10] MEDS: amLODIPine 5 MG Tab PO SCH (08:41)
[2017-01-10] MEDS: Calcium Citrate/Vitamin D3 315 MG-250 Unit Tab PO SCH ×2 (08:42→18:00)
[2017-01-10] MEDS: Multivitamins with Minerals/Iron/Folic Acid/Lycopene Tab PO SCH (08:42)
[2017-01-10] MEDS: Insulin Detemir 100 Units/ML 3 ML Pen SUBCUT SCH (08:43)
[2017-01-10] MEDS: Escitalopram 10 MG Tab PO SCH (08:43)
[2017-01-10] MEDS: Clopidogrel 75 MG Tab PO SCH (08:43)
[2017-01-10] MEDS: Insulin Aspart 100 Units/ML 3 ML Pen SUBCUT SCH ×2 (12:28→18:00)
[2017-01-10] MEDS: Aspirin 81 MG Tab.EC PO SCH (17:59)
[2017-01-10] MEDS: Ascorbic Acid 500 MG Tab PO SCH (21:00)
[2017-01-10] MEDS: risperiDONE 0.25 MG Tab PO SCH (21:00)
[2017-01-10] MEDS: Docusate Sodium 100 MG Cap PO SCH (21:00)
[2017-01-10] MEDS: atorvaSTATin 10 MG Tab PO SCH (21:01)
[2017-01-11] MEDS: Acetaminophen 650 MG Tab.ER PO SCH ×3 (07:05→21:09)
[2017-01-11] MEDS: Insulin Detemir 100 Units/ML 3 ML Pen SUBCUT SCH (08:26)
[2017-01-11] MEDS: Benazepril 10 MG Tab PO SCH ×2 (08:27→21:09)
[2017-01-11] MEDS: Calcium Citrate/Vitamin D3 315 MG-250 Unit Tab PO SCH ×2 (08:27→18:29)
[2017-01-11] MEDS: Multivitamins with Minerals/Iron/Folic Acid/Lycopene Tab PO SCH (08:27)
[2017-01-11] MEDS: Escitalopram 10 MG Tab PO SCH (08:27)
[2017-01-11] MEDS: amLODIPine 5 MG Tab PO SCH (08:28)
[2017-01-11] MEDS: Clopidogrel 75 MG Tab PO SCH (08:30)
[2017-01-11] MEDS: Insulin Aspart 100 Units/ML 3 ML Pen SUBCUT SCH ×2 (12:45→18:29)
[2017-01-11] MEDS: Aspirin 81 MG Tab.EC PO SCH (18:29)
[2017-01-11] MEDS: risperiDONE 0.25 MG Tab PO SCH (21:09)
[2017-01-11] MEDS: atorvaSTATin 10 MG Tab PO SCH (21:09)
[2017-01-11] MEDS: Docusate Sodium 100 MG Cap PO SCH (21:09)
[2017-01-11] MEDS: Ascorbic Acid 500 MG Tab PO SCH (21:10)
[2017-01-12] MEDS: Acetaminophen 650 MG Tab.ER PO SCH ×3 (06:40→21:14)
[2017-01-12] MEDS: Insulin Detemir 100 Units/ML 3 ML Pen SUBCUT SCH (09:03)
[2017-01-12] MEDS: Escitalopram 10 MG Tab PO SCH (09:04)
[2017-01-12] MEDS: Benazepril 10 MG Tab PO SCH ×2 (09:04→21:13)
[2017-01-12] MEDS: Calcium Citrate/Vitamin D3 315 MG-250 Unit Tab PO SCH ×2 (09:04→18:34)
[2017-01-12] MEDS: Multivitamins with Minerals/Iron/Folic Acid/Lycopene Tab PO SCH (09:04)
[2017-01-12] MEDS: Clopidogrel 75 MG Tab PO SCH (09:05)
[2017-01-12] MEDS: amLODIPine 5 MG Tab PO SCH (09:05)
[2017-01-12] MEDS: Insulin Aspart 100 Units/ML 3 ML Pen SUBCUT SCH ×2 (12:19→18:34)
[2017-01-12] MEDS: Aspirin 81 MG Tab.EC PO SCH (18:34)
[2017-01-12] MEDS: atorvaSTATin 10 MG Tab PO SCH (21:13)
[2017-01-12] MEDS: Docusate Sodium 100 MG Cap PO SCH (21:13)
[2017-01-12] MEDS: risperiDONE 0.25 MG Tab PO SCH (21:14)
[2017-01-12] MEDS: Ascorbic Acid 500 MG Tab PO SCH (21:14)
[2017-01-13] MEDS: Acetaminophen 650 MG Tab.ER PO SCH ×3 (06:49→21:28)
[2017-01-13] MEDS: Insulin Detemir 100 Units/ML 3 ML Pen SUBCUT SCH (08:38)
[2017-01-13] MEDS: Escitalopram 10 MG Tab PO SCH (08:39)
[2017-01-13] MEDS: Multivitamins with Minerals/Iron/Folic Acid/Lycopene Tab PO SCH (08:39)
[2017-01-13] MEDS: Calcium Citrate/Vitamin D3 315 MG-250 Unit Tab PO SCH ×2 (08:39→18:49)
[2017-01-13] MEDS: Clopidogrel 75 MG Tab PO SCH (08:40)
[2017-01-13] MEDS: amLODIPine 5 MG Tab PO SCH (08:40)
[2017-01-13] MEDS: Benazepril 10 MG Tab PO SCH ×2 (08:40→21:28)
[2017-01-13] MEDS: Insulin Aspart 100 Units/ML 3 ML Pen SUBCUT SCH ×2 (11:52→18:49)
[2017-01-13] MEDS: Aspirin 81 MG Tab.EC PO SCH (18:49)
[2017-01-13] MEDS: atorvaSTATin 10 MG Tab PO SCH (21:27)
[2017-01-13] MEDS: Docusate Sodium 100 MG Cap PO SCH (21:27)
[2017-01-13] MEDS: Ascorbic Acid 500 MG Tab PO SCH (21:28)
[2017-01-13] MEDS: risperiDONE 0.25 MG Tab PO SCH (21:28)
[2017-01-14] MEDS: Acetaminophen 650 MG Tab.ER PO SCH ×3 (06:35→21:12)
[2017-01-14] MEDS: Multivitamins with Minerals/Iron/Folic Acid/Lycopene Tab PO SCH (08:40)
[2017-01-14] MEDS: Escitalopram 10 MG Tab PO SCH (08:40)
[2017-01-14] MEDS: Benazepril 10 MG Tab PO SCH ×2 (08:40→21:12)
[2017-01-14] MEDS: amLODIPine 5 MG Tab PO SCH (08:41)
[2017-01-14] MEDS: Calcium Citrate/Vitamin D3 315 MG-250 Unit Tab PO SCH ×2 (08:41→18:01)
[2017-01-14] MEDS: Clopidogrel 75 MG Tab PO SCH (08:41)
[2017-01-14] MEDS: Insulin Detemir 100 Units/ML 3 ML Pen SUBCUT SCH (08:41)
[2017-01-14] MEDS: Insulin Aspart 100 Units/ML 3 ML Pen SUBCUT SCH ×2 (12:14→18:01)
[2017-01-14] MEDS: Aspirin 81 MG Tab.EC PO SCH (18:01)
[2017-01-14] MEDS: risperiDONE 0.25 MG Tab PO SCH (21:12)
[2017-01-14] MEDS: Docusate Sodium 100 MG Cap PO SCH (21:12)
[2017-01-14] MEDS: Ascorbic Acid 500 MG Tab PO SCH (21:12)
[2017-01-14] MEDS: atorvaSTATin 10 MG Tab PO SCH (21:12)
[2017-01-15] MEDS: Acetaminophen 650 MG Tab.ER PO SCH (05:53)
[2017-01-15] MEDS: Insulin Detemir 100 Units/ML 3 ML Pen SUBCUT SCH (08:26)
[2017-01-15] MEDS: Calcium Citrate/Vitamin D3 315 MG-250 Unit Tab PO SCH (08:28)
[2017-01-15] MEDS: Clopidogrel 75 MG Tab PO SCH (08:28)
[2017-01-15] MEDS: Escitalopram 10 MG Tab PO SCH (08:28)
[2017-01-15] MEDS: Multivitamins with Minerals/Iron/Folic Acid/Lycopene Tab PO SCH (08:28)
[2017-01-15] MEDS: Benazepril 10 MG Tab PO SCH (08:28)
[2017-01-15] MEDS: amLODIPine 5 MG Tab PO SCH (08:28)
[2017-01-15 08:29] VITALS: BP 103/55
--- NOTE | 2017-01-16 07:56 | DISCH ---
She was initially admitted on 12/23/2016 in observation, then eventually switched to inpatient, and then eventually switched to swing bed on 12/28/2016. FINAL DIAGNOSES: 1. Weakness, much improved. 2. Transient ischemic attack, initiated on dual antiplatelet therapy. 3. Visual hallucinations, resolved. 4. Hypertension, much improved. 5. Urinary tract infection, treated with Bactrim. SECONDARY FINAL DIAGNOSES: 1. Type 2 diabetes. 2. History of hypercholesterolemia. 3. Depression. 4. Osteoarthritis. 5. Bilateral carotid artery stenosis, nonoperable. HISTORY: This 86-year-old female, she was initially admitted to acute care through the ED for hypertension and headache. She was treated and released at one point to the ED; however, she returned subsequent day due to ongoing headaches. She had checked her blood pressure at home, it was quite elevated. Her head CT upon admission did not show any acute process. However, it was noted for her to have a slightly elevated white count with bacteremia, so she was admitted for elevated hypertension and unstable blood pressures along with IV antibiotics. She had been fallen about two times in the past month prior to her being admitted. She remained high fall risk due to her bilateral knee pathology and pain. While she was in acute care, it was determined that physical therapy she could benefit due to her functional limitations and her gait instability and so she was eventually placed in swing bed for rehabilitation. CODE STATUS: While in hospital, [id number]. HOSPITAL COURSE: Her hospital course went fairly well. She did have significant weakness and she remained high fall risk. Physical Therapy evaluated her and she continued with rehabilitation. She performed on the recumbent lead trainer. She ambulated in the halls. She did have early on some confusion which was determined to be likely a TIA. She was placed on dual antiplatelet therapy, Plavix and aspirin (DAPT score 3), this seemed to improve. She no longer had any TIA. At one point, we thought she had some slurred speech, however, this quickly resolved. I had placed her on moderate intensity statin therapy. She did have ongoing sporadic visual hallucinations over her left shoulder, however, there was no deficit focal. She had no aphasia. She did have some mild hospital psychosis. I placed her on Risperdal 0.25 mg at bedtime, this did seem to work. She had less visual hallucinations over time. I did have Optometry come in and evaluate her at the hospital bed. She did have ongoing hypertensions, at time it was quite significant. She was placed on Norvasc, continued with Lotensin b.i.d. PHYSICAL EXAM ON DISCHARGE: VITAL SIGNS: Blood pressure 103/55, temperature 97.2, heart rate 68 and regular, respiratory rate 16, O2 sats 95%. GENERAL: The patient is alert and oriented. Denies any visual hallucinations. LUNGS: Clear to auscultation. CARDIOVASCULAR: Regular rate and rhythm. MEDICATIONS: 1. Norvasc 10 mg p.o. daily. 2. Vitamin C 500 mg p.o. at bedtime. 3. Aspirin 81 mg daily. 4. Plavix 75 mg p.o. daily. 5. Benazepril 40 mg p.o. b.i.d. 6. Lexapro 10 mg p.o. daily. 7. Insulin NovoLog 10 units subcu b.i.d. 8. Levemir 75 units daily. 9. Milk of magnesia 30 mL p.o. daily p.r.n. 10.Multivitamin one per day. 11.Tramadol 50 mg p.o. q.6 hours p.r.n. 12.Tylenol Arthritis 650 mg scheduled q.8. DISPOSITION: The patient will be discharged from swing bed at [facility]. She will be placed in an assisted living in [place], [place], along with her spouse. She will follow up, appointments have been made. Report any increase in pain or any dizziness or chest pain or any increase in visual acuity or signs of TIA. MEDICAL DECISION MAKING: Forty two minutes were spent on this discharge planning, pharmacy consultation, social security specialist consultation. /[id number]/MODL
== END 2017-01-15 11:45 | disposition home or self-care (01) | DRG 948 ==
LOC: KA.MS 10:00
PROVIDERS: ADMIT Nurse Practitioner Family; ATTEND Nurse Practitioner Family
DX: R53.1 Weakness (principal); G45.9 Transient cerebral ischemic attack, unspecified; N39.0 Urinary tract infection, site not specified; R44.1 Visual hallucinations; I10 Essential (primary) hypertension; E11.9 Type 2 diabetes mellitus without complications; E78.00 Pure hypercholesterolemia, unspecified; F32.9 Major depressive disorder, single episode, unspecified; M19.90 Unspecified osteoarthritis, unspecified site; F41.9 Anxiety disorder, unspecified; Z66 Do not resuscitate; Z79.82 Long term (current) use of aspirin; Z79.899 Other long term (current) drug therapy; Z79.4 Long term (current) use of insulin; Z88.8 Allergy status to other drugs, medicaments and biological substances
CPT/HCPCS: 36415; 80048; 82962; 97110-GP; 97150-GP; 97162-GP; 97537-GP; A9270-GY; J1815-GY